=== PATIENT | male | born 1965 | race Caucasian/White ===

== ENCOUNTER 2020-12-06 00:29 | Inpatient (IN) | payer MEDICARE, MEDICAID, SELFPAY ==
[2020-12-06 00:30] VITALS: BP 166/94; PULSE 96; RESP 20; TEMP 36.8; O2SAT 95; BMI 38.9
[2020-12-06 00:45] LABS: Basophils % 0.5 %; Eosinophils # 0.4 10^3/uL (0.0-0.8); Eosinophils % 4.9 %; Hematocrit 40.3 % (42.0-52.0); Hemoglobin 12.3 g/dL (11.7-16.6); Lymphocytes # 2.5 10^3/uL (0.8-4.8); Lymphocytes % 31.5 %; Mean Corpuscular HGB Conc 30.5 g/dL (30.0-36.0); Mean Corpuscular Hemoglobin 26.4 pg (28.0-34.0); Mean Corpuscular Volume 86.5 fL (80-94); Mean Platelet Volume 10.6 fL (7.4-10.4); Monocytes # 0.8 10^3/uL (0.2-0.9); Monocytes % 9.6 %; Neutrophils # 4.25 10^3/uL (1.8-7.7); Neutrophils % 53.2 %; Nucleated Red Blood Cells % 0 %; Platelet Count 304 10^3/cmm (130-400); Red Blood Count 4.66 10^6/uL (4.1-5.3); Red Cell Distribution Width 14.4 % (12.1-15.1)
--- NOTE | 2020-12-06 00:53 | ED_ITS ---
HPI - Psych General: Chief Complaint: Psychiatric Symptoms Stated Complaint: MHE Time Seen by Provider: 12/06/20 00:34 Source: patient and EMS Mode of arrival: EMS Limitations: no limitations History of Present Illness: HPI Narrative: Jasvir is a 55-year-old male who is here from [facility] with paranoia and agitation. He is a paranoid schizophrenic and was refusing to take his medicine tonight was quite agitated at the jail. Patient's had no homicidal suicidal ideations. Here he has been calm and cooperative. He denies any worsening improving factors. Review of Systems Const: Denies: fever(s), chills, body aches or change in appetite Eyes: Denies: blurry vision or eye discomfort ENMT: Denies: throat pain or dental pain Card: Denies: chest pain Resp: Denies: dyspnea GI: Denies: abdominal pain, nausea, vomiting or diarrhea : Denies: dysuria Musc: Denies: neck pain or back pain Skin/Breast: Denies: rash Neuro: Denies: headache(s) Psych: Reports: paranoia Terell/Lymph: Denies: easy bruising All/Imm: Denies: urticaria Physical Exam Const: COMMON NORMALS: no acute distress, patient oriented x3 and healthy appearing HENMT: COMMON NORMALS: normocephalic and atraumatic HEAD & SCALP: normocephalic and atraumatic Eye: COMMON NORMALS: Equal, round and reactive pupils present and EOMs intact bilaterally PUPIL: Yes Equal, round and reactive pupils present Neck/C-Spine: COMMON NORMALS: full ROM and supple Chest: COMMONS NORMALS: normal inspection of the chest and normal palpation of entire chest wall Resp: COMMON NORMALS: normal respiratory effort, No retractions, No use of accessory muscles and clear to auscultation bilaterally AUSCULTATION: clear to auscultation bilaterally Cardio: COMMON NORMALS: regular rate, regular rhythm and No murmurs present (Cardio) RATE: regular rate RHYTHM: regular rhythm GI: COMMON NORMALS: Normal to inspection, nondistended, normoactive bowel sounds present, Soft to palpation, non-tender and no masses PALPATION: Yes Soft to palpation Extremity: COMMON NORMALS: normal to inspection and full ROM Neuro: COMMON NORMALS: patient oriented x3, moves all extremities and no focal motor deficits Psych: COMMON NORMALS: mental status grossly normal, Normal thought process present and cooperative THOUGHT PROCESS: Normal thought process present Skin: COMMON NORMALS: no rashes or lesions noted and no wounds GENERAL SKIN EXAM: no rashes or lesions noted Course Vital Signs: Vital signs: Vital Signs Temperature 98.2 F 12/06/20 00:30 Pulse Rate 96 12/06/20 00:30 Respiratory Rate 20 H 12/06/20 00:30 Blood Pressure 166/94 12/06/20 00:30 Pulse Oximetry 95 12/06/20 00:30 MDM - Psych MDM Narrative: Medical decision making narrative: Patient presents here with extreme paranoia and was agitated jail night. Patient here has been cooperative. He does seem quite paranoid and states that the jail has been trying to harm him by giving him the wrong medicines. I spoke to Dr. Wallace and will admit him for observation for this paranoia. He is not suicidal or homicidal. Lab Data: Labs: Lab Results 12/06/20 12/06/20 Range/Units 00:38 00:38 WBC 8.0 (4.0-10.0) 10^3/ uL RBC 4.66 (4.1-5.3) 10^6/u L Hgb 12.3 (11.7-16.6) g/dL Hct 40.3 L (42.0-52.0) % MCV 86.5 (80-94) fL MCH 26.4 L (28.0-34.0) pg MCHC 30.5 (30.0-36.0) g/dL RDW 14.4 (12.1-15.1) % Plt Count 304 (130-400) 10^3/c mm MPV 10.6 H (7.4-10.4) fL Neut % (Auto) 53.2 % Lymph % (Auto) 31.5 % [place] % (Auto) 9.6 % Eos % (Auto) 4.9 % Baso % (Auto) 0.5 % Neut # (Auto) 4.25 (1.8-7.7) 10^3/u L Lymph # (Auto) 2.5 (0.8-4.8) 10^3/u L [place] # (Auto) 0.8 (0.2-0.9) 10^3/u L Eos # (Auto) 0.4 (0.0-0.8) 10^3/u L Baso # (Auto) 0.0 (0.0-0.1) 10^3/u L Nucleated RBC % (a uto) 0 % Nucleated RBCs # 0.0 /100WBC Sodium 135 L (136-145) mmol/L Potassium 3.9 (3.5-5.1) mmol/L Chloride 103 (98-107) mmol/L Carbon Dioxide 24 (22-29) mmol/L Anion Gap 11.9 (5-19) BUN 14 (6-20) mg/dL Creatinine 0.6 L (0.7-1.2) mg/dL GFR Calculation 140.9 H (90-130) mL/min Glucose 90 (65-115) mg/dL Calculated Osmolal ity 280 L (285-295) mOsm/k g Calcium 8.7 (8.5-10.5) mg/dL Total Bilirubin 0.3 (0.15-1.2) mg/dL AST 11 (0-40) U/L ALT 13 (0-41) U/L Alkaline Phosphata se 101 (40-130) IU/L Total Protein 7.9 (6.6-8.7) g/dL Albumin 4.2 (3.5-5.2) g/dL Globulin 3.7 (1.3-4.6) g/dL Salicylates < 0.3 L (3-10) mg/dL Acetaminophen < 5.0 L (10-30) ug/mL Ethyl Alcohol < 10 (0-10) mg/dL Discharge Plan Discharge Patient Disposition: Admitted As Inpatient Clinical Impression: Bipolar disorder, Paranoia Condition: Stable Coding Level of Care Code ED Hospital Receptionist for [facility] Fwd Exam Comprehensive
[2020-12-06 01:01] LABS: Alanine Aminotransferase 13 U/L (0-41); Albumin Level 4.2 g/dL (3.5-5.2); Alkaline Phosphatase 101 IU/L (40-130); Anion Gap 11.9 (5-19); Aspartate Amino Transferase 11 U/L (0-40); Blood Urea Nitrogen 14 mg/dL (6-20); Calcium 8.7 mg/dL (8.5-10.5); Carbon Dioxide 24 mmol/L (22-29); Chloride 103 mmol/L (98-107); Globulin 3.7 g/dL (1.3-4.6); Glomerular Filtration Rate 140.9 mL/min (90-130); Glucose 90 mg/dL (65-115); Osmolality Calculated 280 mOsm/kg (285-295); Potassium 3.9 mmol/L (3.5-5.1); Sodium 135 mmol/L (136-145); Total Bilirubin 0.3 mg/dL (0.15-1.2); Total Protein 7.9 g/dL (6.6-8.7)
[2020-12-06 01:02] LABS: Acetaminophen < 5.0 ug/mL (10-30); Alcohol Level < 10 mg/dL (0-10); Salicylate < 0.3 mg/dL (3-10)
[2020-12-06 02:14] VITALS: BP 128/88; PULSE 88; RESP 18; TEMP 36.6; O2SAT 97
[2020-12-06 02:35] LABS: Amphetamines Screen Urine Negative (Negative); Barbiturates Screen Urine Negative (Negative); Benzodiazepines Screen Urine Positive (Negative); Cocaine Screen Urine Negative (Negative); Opiate Screen Urine Negative (Negative); PCP Screen Urine Negative (Negative); THC Screen Urine Negative (Negative)
[2020-12-06 03:00] VITALS: BP 159/94; PULSE 84; RESP 20; TEMP 36.7; O2SAT 95
--- NOTE | 2020-12-06 04:34 | PC.NURSE ---
55/M who is here from [facility] with paranoia and agitation. He is a paranoid schizophrenic and was refusing to take his medicine tonight was quite agitated at the skilled nursing. Patient's had no homicidal suicidal ideations. Here he has been calm and cooperative. PT BELIEVES HE IS RECEIVING THE WRONG AMOUNTS AND TYPES OF MEDICATIONS IN ADDITION TO BEING NEW TO THIS FACILITY. MEDICATION WILL NEED TO BE EVALUATED AGAIN. THERE ARE SEVERAL MEDICATIONS HE TAKES THAT ARE FOR PSYCH REASONS, LABS MAY NEED TO BE ORDERED, PT IS DIABETIC, HAD THYROID ISSUES, HYPERTENSION, AND SCHIZOPHRENIA.
[2020-12-06 06:00] VITALS: BP 120/73; PULSE 80; RESP 14; TEMP 36.9; O2SAT 96
[2020-12-06 14:00] VITALS: BP 148/86; PULSE 97; RESP 20; TEMP 36.4; O2SAT 94
--- NOTE | 2020-12-06 14:39 | P.HP_ITS ---
Providers/Chief Complaint Admitting Physician: Familia Wallace MD Chief Complaint: MHE HPI NPU History of Present Illness Jasvir Reynolds is a 55 year old male who presented to the emergency department with the following report: Chief Complaint: Psychiatric Symptoms Stated Complaint: MHE Time Seen by Provider: 12/06/20 00:34 Source: patient and EMS Mode of arrival: EMS Limitations: no limitations History of Present Illness: HPI Narrative: Jasvir is a 55-year-old male who is here from [facility] with paranoia and agitation. He is a paranoid schizophrenic and was refusing to take his medicine tonight was quite agitated at the snf. Patient's had no homicidal suicidal ideations. Here he has been calm and cooperative. He denies any worsening improving factors. Bilaterally the He was mated to the neuropsychiatric unit for definitive treatment of those issues. He presents today as a fairly poor historian and the specifics of his situation in part due to his mumbling delivery when speaking. He reports he has had many inpatient psychiatric hospitalizations probably least 20. He reports that he does generally have outpatient services and has been on many different medications. Reports he had a diagnosis of schizophrenia or bipolar disorder. He does report a history of suicide attempt in the past. He denies reports drinking alcohol rarely, reports he last smoked marijuana when he was about 23 he denies any other illicit drug use. Is never been to rehab except when he was a kid and he never had a DUI. He tells a very convoluted story which is hard to follow that unified multiple different places that he is ultimately saying and what sounds like residential treatment facilities. He talked about some residential treatment places that preceded his current situation at [facility]. It does not sound like he had a [facility] for very long and he reports that it is not going well because they are giving him different medications but then he was unable to really clarify what medication they were given him that he should get and which ones he should. He was trying to explain what he was taking at a facility possibly inpatient facility prior to [facility] but it was unclear the name and he could really articulate what changes were made. We agreed that we would attempt to get some information from [facility] about what they got information was prior to prescribing to him. Attempt to gather past psychosocial history was very difficult because of his speaking style and mumbling he was getting frustrated at the repeat question request. He reports he would be willing to take the medications that he believes he should be taking but that is hard to tease out. Meds NPU Home Medications Medication Instructions Recorded Confirmed Last Taken Type Ativan 2 tab PO BID 12/06/20 12/06/20 Unknown History Benadryl 50 mg PO BID 12/06/20 12/06/20 Unknown History Detrol 1 tab PO BID 12/06/20 12/06/20 Unknown History Janumet 50 - 500 mg PO BID 12/06/20 12/06/20 Unknown History Restasis 0.005 % EYE-BOTH BID 12/06/20 12/06/20 Unknown History Vitamin D3 Complete 1,000 units PO DAILY 12/06/20 12/06/20 Unknown History Zyprexa 10 mg IM DAILY PRN 12/06/20 12/06/20 Unknown History Zyprexa 20 mg IM Q4H PRN 12/06/20 12/06/20 Unknown History Zyprexa Zydis 20 mg PO Q4H PRN 12/06/20 12/06/20 Unknown History divalproex 1,000 mg PO BEDTIME 12/06/20 12/06/20 Unknown History divalproex 500 mg PO DAILY 12/06/20 12/06/20 Unknown History divalproex 500 mg PO DAILY 12/06/20 12/06/20 Unknown History divalproex [Depakote] 1,000 mg PO BEDTIME 12/06/20 12/06/20 Unknown History docusate sodium [Colace] 100 mg PO DAILY PRN 12/06/20 12/06/20 Unknown History docusate sodium [Colace] 200 mg PO DAILY 12/06/20 12/06/20 Unknown History doxepin 50 mg PO BEDTIME 12/06/20 12/06/20 Unknown History famotidine [Pepcid] 20 mg PO BID 12/06/20 12/06/20 Unknown History fluticasone propionate 2 spray INTRANASAL DAILY 12/06/20 12/06/20 Unknown History gabapentin 600 mg PO TID 12/06/20 12/06/20 Unknown History haloperidol [Haldol] 10 mg PO BID 12/06/20 12/06/20 Unknown History latanoprost 1 drp OPHTHALMIC (EYE) DAILY 12/06/20 12/06/20 Unknown History levothyroxine 25 mcg PO DAILY 12/06/20 12/06/20 Unknown History lisinopril 10 mg PO DAILY 12/06/20 12/06/20 Unknown History lithium carbonate 450 mg PO BID 12/06/20 12/06/20 Unknown History meloxicam 7.5 mg PO DAILY 12/06/20 12/06/20 Unknown History nitroglycerin 0.4 mg PO DIRECTED PRN 12/06/20 12/06/20 Unknown History olanzapine [Zyprexa] 10 mg PO BEDTIME 12/06/20 12/06/20 Unknown History pantoprazole [Protonix] 40 mg PO DAILY 12/06/20 12/06/20 Unknown History tamsulosin [Flomax] 0.4 mg PO DAILY 12/06/20 12/06/20 Unknown History Allergies Allergy/AdvReac Type Severity Reaction Status Date / Time bee venom protein (honey bee) Allergy Unknown Verified 12/06/20 03:26 Penicillins Allergy Unknown Verified 12/06/20 03:26 Glucophage Allergy Unknown Uncoded 12/06/20 05:24 Mental Status Exam MSE Comments: This is an obese versus morbidly obese white male with hospital scrubs on with limited grooming and eye contact. No abnormal movements except for psychomotor retardation. Cooperative with exam in mild distress. Speech was increased rate, decreased volume without clear enunciation in his words so it was mumbling without enunciation. Mood described as okay affect anxious. Thought process mostly organized. Thought content: Patient denied suicidal or homicidal ideations, there were no delusions reported but paranoid and persecutory thinking appeared present, he did not report any auditory visual hallucination. Concentration were mostly intact and memory appeared unreliable but none were formally tested. He is alert and oriented times person and place. Insight and judgment are limited and impulse control is limited. Vitals/I&O/Wt Last Vital Signs Temp 97.5 F L 12/06/20 14:00 Pulse 97 12/06/20 14:00 Resp 20 H 12/06/20 14:00 BP 148/86 12/06/20 14:00 Pulse Ox 94 12/06/20 14:00 Weight last 48 hrs Weight 116.12 kg Data NPU : 12/06/20 00:38 12/06/20 00:38 A&P Assessment and plan (1) Schizophrenia: Status: Acute (2) Bipolar disorder: Status: Acute (3) Paranoia: Status: Acute (4) Adjustment disorder with mixed disturbance of emotions and conduct: Status: Acute Additional A&P Information This is a 55-year-old white male with a long history of psychotic disorder and likely different placements who presents adjusting to a new facility with some paranoia and lack of clarity about appropriate medication with significant polypharmacy. 1. Continue current medication. We will need to verify medication before we reinstate some of his medication. We will start the medication that he is agr eeable to. 2. Continue every 15 minute checks for safety. 3. Encourage individual, group and milieu therapies. 4. We will need collateral information and possible snorkel information on his past medications prescribed. Involuntary Hold Information 96 Hour Hold: 96 Hour Involuntary Admission: No Attestations NPU Medical Necessity Statement*: Inpatient hospitalization is medically necessary and the clinically appropriate intervention at this time. We will monitor medications and make changes as indicated. Patient will be in the hospital for over two midnights. Likely length of stay 3 to 5 days. Coding Level of Care Code Acute Nursery Rn for [facility] Diagnoses Schizophrenia F20.9 Bipolar disorder F31.9 Paranoia F22 Adjustment disorder with mixed disturbance of emotions and conduct F43.25
[2020-12-06 20:23] VITALS: RESP 18
--- NOTE | 2020-12-06 20:24 | PC.NURSE ---
pt refused vitals/stiven/12-06-2020
--- NOTE | 2020-12-06 21:21 | PC.NURSE ---
PM Assessment Pt is sitting on the bench by nurses station, eyes wide, he seems lost. Pt says You lied to me, refuses to interact with nurse, Crisis Counselor was present, she attempted to interact with pt. Pt believes he is at the hospital to see his 53 yr old son, (He is 53) and states he is 71 years old, Im the father. You have me here by mistake, giving me medications I do not take, Pt comes to unit from [facility] in [place], [place]. He is very agitated, refuses medication, refuses redirection regarding unit rules of open door and 15 min observation, jumped out of bed at nurse, who was able to verbally de-escalate patient, education provided on expected behavior/rules of unit, pt reoriented with staff. Pt refused to believe nurse is a RN. Very paranoid this evening. This is a change from time of admission. Pt was clear at that time, able to provide accurate details of medication, names of people, time and place. Tonight he is not able to do this, he believes nurse nurse shut off the sun, and tricked him, it is near [place], and the leaves fell Pt refuses to believe he is 55 and needs to be here, adamantly declares his age of 73, refused to provide birthday. Pt gets agitated easily, seems lost, overwhelmed, and yells when approached. He said that he is a former member, his hands are registered as weapons, he has 5 children, plays guitar, loves music, and he provided phone number for nurse to call to verify who he is, to prove that he has been admitted wrongfully. Pt never asked to go home. He is voluntary. When asked where he lives, pt responded, Here, here, here. Nurse attempted to administered night medications, he refused all this evening. He wants to rest, wedge placed to ease his breathing at night, pt snores loudly may need eval for apnea. Nurse spent over 45 min in room to calm patient effectively. Pt room is closed due to his psychosis, pt believes he is [place] , he is Michel and the president covered it up, and that he is not who we as a facility say we are, the staff is not who they say. We are out to kill him. He is resting and said Call the people I told you to. Pt provided names and numbers from memory. Very convincing as he told nurse who they were. Nurse called [place], he said was his daughter, this was a caregivers home number who was startled he had her home information. Nurse addressed pt concern of medications, he refused to take them. Med rec completed on admission mentioned to Physician as suspect at that time, and nurse asked physician to look over them with her tonight and suggested they may need to be adjusted, and new labs establishing a baseline for them. Physician ordered Valproic Acid, BMP, CBC, A1C, [place] level, and Thyroid panel. Contacted facility at [facility] for a current med list, received it, placed in chart, physician notified, response was please inform next physician as he will be taking over care the next several days.
[2020-12-07 06:00] VITALS: BP 141/88; PULSE 92; RESP 17; TEMP 36.8; O2SAT 93
[2020-12-07 06:18] LABS: Glucose Point of Care 115 mg/dL (70-110)
[2020-12-07 07:13] LABS: Basophils % 0.3 %; Eosinophils # 0.2 10^3/uL (0.0-0.8); Eosinophils % 2.3 %; Hematocrit 42.6 % (42.0-52.0); Lymphocytes # 2.4 10^3/uL (0.8-4.8); Lymphocytes % 24.4 %; Mean Corpuscular HGB Conc 30.5 g/dL (30.0-36.0); Mean Corpuscular Hemoglobin 26.1 pg (28.0-34.0); Mean Corpuscular Volume 85.4 fL (80-94); Mean Platelet Volume 10.5 fL (7.4-10.4); Monocytes # 0.7 10^3/uL (0.2-0.9); Monocytes % 6.7 %; Nucleated Red Blood Cells % 0 %; Platelet Count 316 10^3/cmm (130-400); Red Blood Count 4.99 10^6/uL (4.1-5.3); Red Cell Distribution Width 14.6 % (12.1-15.1); White Blood Count 9.7 10^3/uL (4.0-10.0)
[2020-12-07 07:38] LABS: Anion Gap 12.7 (5-19); Blood Urea Nitrogen 16 mg/dL (6-20); Calcium 9.1 mg/dL (8.5-10.5); Carbon Dioxide 25 mmol/L (22-29); Chloride 102 mmol/L (98-107); Glomerular Filtration Rate 140.9 mL/min (90-130); Glucose 156 mg/dL (65-115); Osmolality Calculated 286 mOsm/kg (285-295); Potassium 3.7 mmol/L (3.5-5.1); Sodium 136 mmol/L (136-145); Thyroid Stimulating Hormone 2.57 uIU/mL (0.27-4.20)
[2020-12-07 07:39] LABS: Valproic Acid Level 6.7 ug/mL (50-100)
[2020-12-07 07:41] LABS: Lithium < 0.1 mmol/L (0.6-1.2)
[2020-12-07] MEDS: fluticasone nasal spray 16gm Btl 2 SPRAY INTRANASAL (08:35)
[2020-12-07] MEDS: cholecalciferol (vitamin D3) 1,000 unit Tablet 1000 UNIT PO (08:35)
[2020-12-07] MEDS: meloxicam 7.5 mg tablet PO (08:36)
[2020-12-07] MEDS: lisinopril 10 mg Tablet PO (08:36)
[2020-12-07] MEDS: divalproex DR 500 mg Tablet PO (08:36)
[2020-12-07] MEDS: levothyroxine 25 mcg Tablet PO (08:36)
[2020-12-07] MEDS: tolterodine 2 mg Tablet 1 MG PO ×2 (08:36→21:01)
[2020-12-07] MEDS: pantoprazole DR 40 mg Tablet PO (08:36)
[2020-12-07] MEDS: gabapentin 300 mg Capsule 600 MG PO ×3 (08:37→20:37)
[2020-12-07] MEDS: famotidine 20 mg Tablet PO ×2 (08:37→21:01)
[2020-12-07] MEDS: lithium carbonate ER 450 mg Tablet PO (08:37)
[2020-12-07] MEDS: tamsulosin 0.4 mg Capsule PO (08:37)
--- NOTE | 2020-12-07 08:38 | PC.NURSE ---
refused scheduled Ativan, pt stated I only take it as needed
--- NOTE | 2020-12-07 11:43 | P.PN_ITS ---
Subjective NPU Subjective: Interval history: Per staff report, patient is much more alert today with no cognitive complaints Patient denying any current mood symptoms, denies any depressed symptoms, denies anxiety symptoms Denies any suicidal ideation or thoughts about self-harm No interval behavioral disturbances Patient states that he felt like he was overmedicated while using the [facility] and states he does not recall any behavioral disturbances while he was there but does understand that that is why he is in the hospital Reports that he is tolerating medication changes well and has been compliant with this medication with no reports of any medication side effects Mental Status Exam MSE Comments: Patient appears older than stated age, obese, wearing hospital scrubs, slightly disheveled but polite, calm, cooperative, good eye contact Psychomotor activity is neither increased or decreased, no agitation Speech is somewhat slow, normal volume, fair articulation, spontaneous, not pressured I feel much better, full range of affect, not labile Alert, oriented to person, place, time, situation Memory and concentration appear to be fair to intact per interview Intellectual functioning appears to be average at best based on vocabulary, interview Thought process, occasional delays, linear, no flight of ideas, no looseness of associations Thought content, no stated delusions, does not appear to be attending to any internal stimuli, no suicidal or homicidal ideation Insight and judgment appear to be intact Vitals/I&O/Wt Last Vital Signs Temp 98.3 F 12/07/20 06:00 Pulse 92 12/07/20 06:00 Resp 17 12/07/20 06:00 BP 141/88 12/07/20 06:00 Pulse Ox 93 12/07/20 06:00 Weight last 48 hrs Weight 116.12 kg Data NPU : 12/07/20 07:01 12/07/20 07:01 A&P Assessment and plan (1) Adjustment disorder with mixed disturbance of emotions and conduct: Status: Acute (2) Bipolar disorder: Status: Acute Qualifiers: Current episode severity: unspecified Active/Remission status: currently active Current bipolar episode type: depressed Qualified Code(s): F31.30 - Bipolar disorder, current episode depressed, mild or moderate severity, unspecified Additional A&P Information Patient appears to be back at baseline with regards to cognition, unclear if patient had been medicated in conjunction with behavioral disturbances causing a medication induced confused state. Currently denying any mood symptoms, denies any psychotic symptoms and appears to be organized in his speech and behavior. Would likely benefit from discontinuing Ativan given its likely contribution to sedation and confusion. DECREASE to lithium 450 mg daily CONTINUE other medication Anticipate discharge tomorrow Involuntary Hold Information 96 Hour Hold: 96 Hour Involuntary Admission: No Attestations NPU Medical Necessity Statement*: Continues require psychiatric hospitalization for medication stabilization, coordination for safe discharge Coding Level of Care Code Acute Last Cleaner for [facility] Diagnoses Adjustment disorder with mixed disturbance of emotions and conduct F43.25 Bipolar disorder F31.30 Current episode severity: unspecified Active/Remission status: currently active Current bipolar episode type: depressed
[2020-12-07 14:00] VITALS: BP 120/75; PULSE 100; RESP 20; TEMP 36.8; O2SAT 95
[2020-12-07 20:36] VITALS: BP 127/68; PULSE 89; RESP 18; TEMP 37.1; O2SAT 95
[2020-12-07] MEDS: OLANZapine 10 mg TABLET PO (20:36)
[2020-12-07] MEDS: divalproex DR 500 mg Tablet 1000 MG PO (20:36)
[2020-12-07] MEDS: doxepin 50 mg Capsule PO (20:37)
[2020-12-07] MEDS: latanoprost 0.005% Op Soln 2.5 mL Btl 1 DROP EYE-BOTH ×2 (21:15→21:17)
--- NOTE | 2020-12-07 23:16 | PC.NURSE ---
PM Assessment Pt is sitting in the dayroom, heart/lungs wnl, smiling, interacting with staff appropriately, he is able to give name, birthday, time of day, and season. Remembered nurse from last shift, pt is calm and cooperative at this time, he does require re-education regarding keeping door open. Pt put in his own eye drops for nurse, and took scheduled medication without incident, pt told hand sign writer, I had blood drawn this morning, and said I am feeling pretty good today. 0701 on 12/07/20 Labs: Glucose is 156(elevated), GFR 140.9 (elevated), TSH 2.57 (normal), and Valproic Acid 6.7 (Low), and [place] is below 0.1 (LOW). Medication list from facility lists 450mg PO [place] BID, Valproic Acid 600mg PO TID, and many other medications of concern. [facility] staff indicated this patient has a history of violent outbursts, new onset Sundowning type behaviors, and he often refuses medications. Staff said this patient has only been with facility about 10-1.5 months. health information manager, Carolann, made aware of nursing concerns, stated she would look into his meds and history.
[2020-12-08] MEDS: nicotine 2 mg Gum BUCCAL (03:52)
--- NOTE | 2020-12-08 03:52 | NUR.SHIFT ---
nocturnal incontinence pt urinated two time in his bed, showered, and refused brief. Pt is cooperative with staff this evening, mood is more even, and speech is less pressured
[2020-12-08 05:42] VITALS: BP 115/67; PULSE 82; RESP 17; TEMP 36.7; O2SAT 97
[2020-12-08] MEDS: fluticasone nasal spray 16gm Btl 2 SPRAY INTRANASAL (07:55)
[2020-12-08] MEDS: tolterodine 2 mg Tablet 1 MG PO (07:55)
[2020-12-08] MEDS: lisinopril 10 mg Tablet PO (07:56)
[2020-12-08] MEDS: divalproex DR 500 mg Tablet PO (07:56)
[2020-12-08] MEDS: gabapentin 300 mg Capsule 600 MG PO (07:56)
[2020-12-08] MEDS: levothyroxine 25 mcg Tablet PO (07:56)
[2020-12-08] MEDS: cholecalciferol (vitamin D3) 1,000 unit Tablet 1000 UNIT PO (07:56)
[2020-12-08] MEDS: tamsulosin 0.4 mg Capsule PO (07:57)
[2020-12-08] MEDS: lithium carbonate ER 450 mg Tablet PO (07:57)
[2020-12-08] MEDS: pantoprazole DR 40 mg Tablet PO (07:57)
[2020-12-08] MEDS: famotidine 20 mg Tablet PO (07:57)
[2020-12-08] MEDS: meloxicam 7.5 mg tablet PO (07:57)
[2020-12-08 09:21] VITALS: BP 115/67; PULSE 82; RESP 17; TEMP 36.7; O2SAT 97
--- NOTE | 2020-12-08 09:39 | P.DS_ITS ---
Diagnoses at Discharge Discharge Diagnosis (1) Adjustment disorder with mixed disturbance of emotions and conduct: Status: Acute (2) Bipolar disorder: Status: Acute Qualifiers: Active/Remission status: currently active Current bipolar episode type: depressed Current episode severity: unspecified Qualified Code(s): F31.30 - Bipolar disorder, current episode depressed, mild or moderate severity, unspecified Reason for Visit Reason for Visit: [facility] Hospital Course Hospital Course 55-year-old male with history of paranoid schizophrenia admitted from fdc secondary to worsening agitation and confusion although patient was initially calm and cooperative at the time of his admission. Patient also appeared to possibly be confused secondary to increasing amount of as needed medication. Patient's Ativan order was discontinued during this hospital stay as well as decreasing lithium to lithium 450 mg daily secondary to concerns about cognitive clouding and since patient was on multiple mood stabilizing medications. Patient rapidly reconstituted and reported thinking more clearly and denied any mood symptoms, denied any depressed symptoms, denied any suicidal ideation and denied any thoughts about harming anyone else. Patient participated in unit milieu to include group sessions with no reports of any behavioral disturbances. Patient was not suicidal and did not endorse any psychotic symptoms at the time of discharge and did not appear to pose an imminent threat of harm to self or others. Low to moderate risk of harm to self or others given no current suicidal ideation or thoughts about harming others and no current endorsement of psychiatric symptoms although patient's risk may be elevated if he is noncompliant with this medication or medication management follow-up or possibly experiences some agitation or confusion in the context of polypharmacy leading to unexpected, impulsive behavior. Risk mitigation included psychiatric hospitalization for observation for any suicidal or homicidal ideation or behaviors, medication stabilization, recommendation to continue compliance with outpatient medication management follow-up. Patient communicated his understanding of the need to continue compliance with his medication and medication management follow-up as well as exercising more adaptive coping strategies in the context of frustrating situations in a fdc environment in order to further mitigate his risk of harm to self and others. Involuntary Hold Information 96 Hour Hold: 96 Hour Involuntary Admission: No Mental Status Exam MSE Comments: Obese male, appears older than stated age, appropriately groomed and dressed, wearing hospital scrubs, calm, cooperative, quiet, good eye contact, sitting on his bed Psychomotor activity is neither increased or decreased, no agitation Speaks softly in a somewhat mumbling manner, fair articulation, spontaneous, not pressured I feel good, somewhat constricted affect, not labile Alert and oriented to person, place, time, situation Memory and concentration appear to be intact per interview Thought process, linear, occasional circumstantial speech requiring redirection for clarification to responses but no flight of ideas, no looseness of associations Thought content, patient with some perseveration about an event that happened with regards to changes in TV channels in the day room but otherwise no stated delusions, no hallucinations, no suicidal homicidal ideation Insight and judgment appear to be fair to intact Discharge Data Vitals: Last Vital Signs Temp 98.0 F 12/08/20 09:21 Pulse 82 12/08/20 09:21 Resp 17 12/08/20 09:21 BP 115/67 12/08/20 09:21 Pulse Ox 97 12/08/20 09:21 Discharge Plan Discharge Patient Disposition: Home Condition: Stable Prescriptions: New lithium carbonate 450 mg Tablet Extended Release 450 mg PO DAILY Qty: 30 RF: 0 Continued doxepin 50 mg Capsule 50 mg PO BEDTIME RF: 0 divalproex 500 mg Tablet,Delayed Release (Dr/Ec) 500 mg PO DAILY RF: 0 divalproex 500 mg Tablet,Delayed Release (Dr/Ec) 1,000 mg PO BEDTIME RF: 0 tamsulosin [Flomax] 0.4 mg Capsule 0.4 mg PO DAILY RF: 0 latanoprost 0.005 % Drops 1 drp OPHTHALMIC (EYE) DAILY RF: 0 olanzapine [Zyprexa] 10 mg Tablet 10 mg PO BEDTIME RF: 0 meloxicam 7.5 mg Tablet 7.5 mg PO DAILY RF: 0 pantoprazole [Protonix] 40 mg Tablet,Delayed Release (Dr/Ec) 40 mg PO DAILY RF: 0 lisinopril 10 mg Tablet 10 mg PO DAILY RF: 0 fluticasone propionate 50 mcg/actuation [place],Suspension 2 spray INTRANASAL DAILY RF: 0 Benadryl 25 mg capsule 50 mg PO BID RF: 0 Detrol 1 mg tablet 1 tab PO BID RF: 0 Janumet tablet 50 - 500 mg PO BID RF: 0 Vitamin D3 Complete capsule 1,000 units PO DAILY RF: 0 levothyroxine tablet 25 mcg PO DAILY RF: 0 famotidine [Pepcid] 20 mg Tablet 20 mg PO BID RF: 0 Restasis emulsion 0.005 % eye-both BID RF: 0 gabapentin tablet 600 mg PO TID RF: 0 Zyprexa 10 mg IM DAILY PRN (Reason: Agitation) RF: 0 nitroglycerin tablet 0.4 mg PO DIRECTED PRN (Reason: Agitation) RF: 0 Zyprexa 20 mg IM Q4H PRN (Reason: Agitation) RF: 0 Zyprexa Zydis 20 mg PO Q4H PRN (Reason: behavior r/t schizophrenia) RF: 0 docusate sodium 50 mg Capsule 100 mg PO DAILY PRN (Reason: Constipation) RF: 0 Discontinued Ativan 1 mg tablet 2 tab PO BID RF: 0 lithium carbonate 450 mg Tablet Extended Release 450 mg PO BID RF: 0 Discharge Orders: Discharge Order (Routine); Ordered 12/08/20 Ordered By: Michaela Allan Discharge Diet: Usual diet Discharge Activity: Resume usual activity Patient Instructions: [place] (By mouth), Opioid Safety Discharge Attestations NPU Time Spent in Discharge Care*: greater than 30 min Status at Discharge: Cognitive status at discharge: cognitively intact , Behavioral status at discharge: cooperative , Functional status at discharge: independent ambulation Overall status at discharge: patient is back to baseline Coding Level of Care Code Acute g FW DC note Diagnoses Adjustment disorder with mixed disturbance of emotions and conduct F43.25 Bipolar disorder F31.30 Active/Remission status: currently active Current bipolar episode type: depressed Current episode severity: unspecified
--- NOTE | 2020-12-08 12:48 | PC.NURSE ---
TOM FROM [facility] IN [place] CALLED WITH REQUEST FOR ORDER CLARIFICATION ON PT FOR HALDOL MONTHLY INJECTION AND HALDOL 10 MG PO BID. MAINTENANCE FITTER NOTIFIED DR. LUNA AND RESPONSE WAS FOR PT TO CONTINUE WITH MONTHLY HALDOL INJECTION AND TO DISCONTINUE HALDOL 10 MG PO BID. THIS INFORMATION WAS COMMUNICATED TO TOM AT [place] AND SHE VERBALIZED UNDERSTANDING.
== END 2020-12-08 12:20 | disposition skilled nursing facility (03) | DRG 885 ==
LOC: ER 01:16 → NP 17:20
PROVIDERS: Admitting Provider Psychiatry & Neurology Psychiatry; Emergency Provider Emergency Medicine; Visit Provider Psychiatry & Neurology Psychiatry
DX: F31.30 Bipolar disorder, current episode depressed, mild or moderate severity, unspecified (principal); Z91.5 Personal history of self-harm; F43.25 Adjustment disorder with mixed disturbance of emotions and conduct
CPT/HCPCS: 36415; 36416; 80048; 80053; 80164; 80178; 80306; 80307; 81003; 82550; 82962; 83735; 84439; 84443; 85025; 93005; 96372; 99285; J1631

== ENCOUNTER 2020-12-09 07:26 | Inpatient (IN) | payer MEDICARE, MEDICAID, SELFPAY ==
[2020-12-09 07:26] VITALS: BP 143/78; PULSE 121; RESP 18; TEMP 36.7; O2SAT 95; BMI 42.5
--- NOTE | 2020-12-09 07:33 | ECG_ITS ---
[facility] Test Date: 2020-12-09 Pat Name: Jasvir Reynolds Department: Room: Gender: Male Unit Director: : 1965 Requested By: Mely Mercado Order Number: [id number] Gomez MD: Gabby Lunsford M.D. Measurements Intervals [place] Rate: 89 P: 48 IL: 133 QRS: 32 QRSD: 89 T: 54 QT: 353 QTc: 429 Interpretive Statements SINUS RHYTHM NONSPECIFIC T-WAVE ABNORMALITY INTERPRETATION BASED ON A DEFAULT AGE OF 40 YEARS No previous ECG available for comparison Electronically Signed On 12-10-2020 12:08:50 CDT by Gabby Lunsford M.D. [id number] f
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
[2020-12-09 07:47] VITALS: O2SAT 94
[2020-12-09 07:48] LABS: Basophils % 0.4 %; Eosinophils # 0.2 10^3/uL (0.0-0.8); Hematocrit 40.3 % (42.0-52.0); Hemoglobin 12.4 g/dL (11.7-16.6); Lymphocytes # 1.6 10^3/uL (0.8-4.8); Lymphocytes % 14.3 %; Mean Corpuscular HGB Conc 30.8 g/dL (30.0-36.0); Mean Corpuscular Hemoglobin 26.2 pg (28.0-34.0); Mean Platelet Volume 10.4 fL (7.4-10.4); Monocytes # 0.8 10^3/uL (0.2-0.9); Monocytes % 7.6 %; Neutrophils % 75.2 %; Nucleated Red Blood Cells % 0 %; Platelet Count 286 10^3/cmm (130-400); Red Blood Count 4.74 10^6/uL (4.1-5.3); Red Cell Distribution Width 14.4 % (12.1-15.1)
--- NOTE | 2020-12-09 07:50 | PC.NURSE ---
Pt came in from EMS with soft restraints and had been given medication to help him relax. pt was able to be verbally redirected when he arrived to ER. Pt not restrained at this time. dog or animal sitter at bedside. pt is not homicidal or suicidal.
[2020-12-09 08:16] LABS: Alanine Aminotransferase 12 U/L (0-41); Albumin Level 4.4 g/dL (3.5-5.2); Alkaline Phosphatase 94 IU/L (40-130); Aspartate Amino Transferase 14 U/L (0-40); Blood Urea Nitrogen 17 mg/dL (6-20); Calcium 8.9 mg/dL (8.5-10.5); Carbon Dioxide 25 mmol/L (22-29); Chloride 101 mmol/L (98-107); Free T4 Free Thyroxine 1.35 ng/dL (0.82-1.77); Globulin 3.6 g/dL (1.3-4.6); Glomerular Filtration Rate 101.1 mL/min (90-130); Glucose 104 mg/dL (65-115); Magnesium 1.9 mg/dL (1.7-2.3); Osmolality Calculated 284 mOsm/kg (285-295); Sodium 136 mmol/L (136-145); Total Bilirubin 0.5 mg/dL (0.15-1.2)
[2020-12-09 08:20] LABS: Acetaminophen < 5.0 ug/mL (10-30); Alcohol Level < 10 mg/dL (0-10); Salicylate < 0.3 mg/dL (3-10)
[2020-12-09 08:21] LABS: Creatine Phosphokinase 486 U/L (39-308)
--- NOTE | 2020-12-09 08:47 | PC.NURSE ---
pt given breakfast tray. pt remains calm and cooperative with staff.
[2020-12-09 08:49] LABS: Add Urine Microscopic? NO; Charge for UA Resulting for Rev
[2020-12-09 08:58] LABS: Bilirubin Urine Neg (Negative); Blood Urine Neg (Negative); Glucose Urine UA Norm (Normal); Ketones Urine Negative (Negative); Leukocyte Esterase Urine Negative (Negative); Nitrate Urine Negative (Negative); Protein Urine Neg (Negative); Specific Gravity, Urine 1.015 (1.005-1.030); Urine Appearance Clear (CLEAR); Urine Color Straw (Yellow); Urobilinogen Urine Norm (Negative); pH Urine 6 (5-7)
[2020-12-09 09:33] LABS: Amphetamines Screen Urine Negative (Negative); Barbiturates Screen Urine Negative (Negative); Benzodiazepines Screen Urine Negative (Negative); Cocaine Screen Urine Negative (Negative); Opiate Screen Urine Negative (Negative); PCP Screen Urine Negative (Negative); THC Screen Urine Negative (Negative)
[2020-12-09 10:48] VITALS: O2SAT 94
--- NOTE | 2020-12-09 10:53 | PC.PHAR ---
medications entered are from the pts custodial mar-notes are made on rxs that were dced on 12/08/20 on pts nm mar
[2020-12-09 11:07] VITALS: BP 137/83; PULSE 90; RESP 20; TEMP 37.1; O2SAT 96
--- NOTE | 2020-12-09 12:35 | P.HP_ITS ---
Providers/Chief Complaint Admitting Physician: Michaela Allan DO Chief Complaint: COMBATIVE HPI NPU History of Present Illness Jasvir Reynolds is a 55 year old male with history of paranoid schizophrenia brought to the emergency department from care home secondary to report of agitation. Patient states that he felt like people were taking his clothing from him causing him to become verbally and physically agitated. Concerning at the time of discharge yesterday, was that the care home was already asking about giving additional medication before he even arrived back to the care home. Patient had concerns with regards to polypharmacy during last hospitalization and had experienced some confusion for a couple of days while certain medications were being held secondary to being on multiple antipsychotic medications as well as multiple sedating and anticholinergic medications which could have exacerbated patient's confusion and possibly worsened his agitation. Patient currently reporting that he continues to be upset about his circumstances and continues to have paranoid delusions, denies any auditory or visual destinations. Denies any depressed symptoms, denies any suicidal ideation, denies any homicidal ideation or thoughts about harming others but when asked about why he had someone else he stated because they took his things. Psychiatric review of systems is otherwise negative. Denies any changes to modifying factor since last admission. Review of Systems General: Reports: 10 or more systems reviewed and unremarkable except in HPI and below Meds NPU Home Medications Medication Instructions Recorded Confirmed Last Taken Type divalproex 1,000 mg PO DAILY@12/06/20 12/09/20 12/04/20 21:00 History divalproex 500 mg PO DAILY@12/06/20 12/09/20 12/04/20 09:00 History doxepin 50 mg PO BEDTIME@12/06/20 12/09/20 12/04/20 History famotidine [Pepcid] 20 mg PO BID@,12/06/20 12/09/20 12/08/20 History fluticasone propionate 2 spray INTRANASAL DAILY@12/06/20 12/09/20 12/04/20 09:00 History latanoprost 1 drp OPHTHALMIC (EYE) DAILY@12/06/20 12/09/20 12/04/20 History lisinopril 10 mg PO DAILY@12/06/20 12/09/20 12/04/20 07:00 History meloxicam 7.5 mg PO DAILY@12/06/20 12/09/20 12/04/20 09:00 History pantoprazole [Protonix] 40 mg PO DAILY@12/06/20 12/09/20 12/04/20 09:00 History tamsulosin [Flomax] 0.4 mg PO DAILY@18 12/06/20 12/09/20 12/04/20 09:00 History lithium carbonate 450 mg PO DAILY #30 tab 12/08/20 12/09/20 Unknown Rx cholecalciferol (vitamin D3) 25 mcg PO DAILY@12/09/20 12/09/20 Unknown History [Vitamin D3] cyclosporine [Restasis] 1 drp OPHTHALMIC (EYE) Q12H 12/09/20 12/09/20 12/08/20 History diphenhydramine HCl [Benadryl] 50 mg PO BID@,12/09/20 12/09/20 Unknown History docusate sodium 100 mg PO DAILY PRN 12/09/20 12/09/20 Unknown History gabapentin 600 mg PO TID@08,,12/09/20 12/09/20 12/08/20 History haloperidol 10 mg PO BID@08,12/09/20 12/09/20 12/08/20 08:00 History haloperidol decanoate 100 mg IM .ONCE EVERY 28 DAYS 12/09/20 12/09/20 Unknown History levothyroxine 25 mcg PO DAILY@12/09/20 12/09/20 Unknown History lorazepam [Ativan] 2 mg PO BID 12/09/20 12/09/20 12/08/20 08:00 History nitroglycerin [Nitrostat] 0.4 mg SUBLINGUAL Q5M PRN 12/09/20 12/09/20 Unknown History olanzapine [Zyprexa Zydis] 20 mg PO Q4H PRN 12/09/20 12/09/20 Unknown History olanzapine [Zyprexa] 10 mg IM Q24H PRN 12/09/20 12/09/20 Unknown History olanzapine [Zyprexa] 10 mg PO DAILY@12/09/20 12/09/20 Unknown History olanzapine [Zyprexa] 10 mg PO Q6H PRN 12/09/20 12/09/20 Unknown History sitagliptin-metformin [Janumet] 1 tab PO BID 12/09/20 12/09/20 Unknown History tolterodine [Detrol] 1 mg PO BID@08,20 12/09/20 12/09/20 12/08/20 20:00 History Allergies Allergy/AdvReac Type Severity Reaction Status Date / Time bee venom protein (honey bee) Allergy Unknown Verified 12/09/20 10:53 Penicillins Allergy Unknown Verified 12/09/20 10:53 Glucophage Allergy Unknown Uncoded 12/06/20 21:53 [facility] NPU Other Psychiatric History: Other Psychiatric History: No changes since last H&P performed by Dr. Wallace, 12/06/2020 Mental Status Exam MSE Comments: Lying in bed, appears older than stated age, appropriately groomed and dressed, wearing hospital scrubs, calm, cooperative, quiet, good eye contact Psychomotor activity is neither increased or decreased, no agitation Speaks softly in a somewhat mumbling manner, fair articulation, spontaneous, not pressured I feel okay, somewhat constricted affect, not labile Alert and oriented to person, place, time, situation Memory and concentration appear to be intact per interview Intellectual functioning appears to be below average to average at best based on vocabulary, interview Thought process, linear, occasional circumstantial speech requiring redirection for clarification to responses but no flight of ideas, no looseness of associations Thought content, perseveration, paranoid delusions, no hallucinations, no suicidal homicidal ideation Insight and judgment appear to be fair to intact Vitals/I&O/Wt Last Vital Signs Temp 98.8 F 12/09/20 11:07 Pulse 90 12/09/20 11:07 Resp 20 H 12/09/20 11:07 BP 137/83 12/09/20 11:07 Pulse Ox 96 12/09/20 11:07 Weight last 48 hrs Weight 127.006 kg Data NPU : 12/09/20 07:41 12/09/20 07:41 A&P Assessment and plan (1) Schizophrenia: Status: Acute Qualifiers: Schizophrenia type: paranoid schizophrenia Qualified Code(s): F20.0 - Paranoid schizophrenia Additional A&P Information Patient with ongoing paranoia the people are taking things from him in the care home in the context of polypharmacy, confusion creating conditions for situations leading to verbal and physical agitation with recent psychiatric hospitalization under similar circumstances. Patient would benefit from medication stabilization with reevaluation of patient's med list given concerns about polypharmacy with multiple sedating medications and multiple ant ipsychotics which could exacerbate symptoms leading to his presentation. VOLUNTARY ADMIT to inpatient psychiatry Medication reconciliation performed, restart home medication Encouraged patient to participate in unit activities, unit milieu Encourage staff to provide behavioral redirection Involuntary Hold Information 96 Hour Hold: 96 Hour Involuntary Admission: No Attestations NPU Medical Necessity Statement*: Require psychiatric hospitalization for medication stabilization, coordination for safe discharge Anticipate hospital stay to exceed 2 midnights Time Spent in Patient Care: Greater than 35 minutes (>than 50% of time spent in counselling and/or direct pt care on unit) . Coding Level of Care Code Acute Dust Sampler for [facility] Diagnoses Schizophrenia F20.0 Schizophrenia type: paranoid schizophrenia
[2020-12-09 14:00] VITALS: BP 126/89; PULSE 87; RESP 16; TEMP 36.9; O2SAT 97
[2020-12-09] MEDS: gabapentin 300 mg Capsule 600 MG PO ×2 (16:34→20:08)
[2020-12-09] MEDS: tamsulosin 0.4 mg Capsule PO (17:53)
[2020-12-09] MEDS: LORazepam 1 mg Tablet 2 MG PO (18:06)
--- NOTE | 2020-12-09 18:06 | PC.NURSE ---
1800 Ativan When giving patient 1800 medications (Ativan x2 and Flomax), patient took the Flomax and took one Ativan. Patient then dropped the second Ativan in the floor. After retrieving it, this nurse went to waste the medication with second nurse and pull a new pill to give to patient. Witnessed with second nurse, ROXIE Mccurdy. When taking patient the new Ativan (1mg), the patient started yelling at this nurse that he isn't suppose to be taking this medication, patient becoming more anxious and continuing to yell. Security present at doorway of patient's room. Reassured patient that he does not have to take this medication, that he does have the right to refuse and explained that we will speak with the physician about this medication. Patient still seems to be upset, though not yelling at this time. Patient in room, resting on bed at this time. This nurse then went back to [facility] to return medication with second nurse to verify, ROXIE Mccurdy.
[2020-12-09] MEDS: diphenhydrAMINE 25 mg Capsule 50 MG PO (20:07)
[2020-12-09] MEDS: divalproex DR 500 mg Tablet 1000 MG PO (20:07)
[2020-12-09] MEDS: famotidine 20 mg Tablet PO (20:08)
[2020-12-09] MEDS: tolterodine 2 mg Tablet 1 MG PO (20:09)
[2020-12-09 21:31] VITALS: BP 115/66; PULSE 80; RESP 17; TEMP 36.6; O2SAT 96
[2020-12-10 06:00] VITALS: BP 139/88; PULSE 89; RESP 17; TEMP 36.6; O2SAT 100
[2020-12-10] MEDS: pantoprazole DR 40 mg Tablet PO (06:07)
[2020-12-10] MEDS: levothyroxine 25 mcg Tablet PO (06:07)
[2020-12-10] MEDS: divalproex DR 500 mg Tablet PO (06:07)
[2020-12-10] MEDS: cholecalciferol (vitamin D3) 1,000 unit Tablet 1000 UNIT PO (06:07)
[2020-12-10] MEDS: lisinopril 10 mg Tablet PO (06:07)
[2020-12-10] MEDS: meloxicam 7.5 mg tablet PO (06:08)
[2020-12-10] MEDS: latanoprost 0.005% Op Soln 2.5 mL Btl 1 DROP EYE-BOTH (06:11)
[2020-12-10] MEDS: fluticasone nasal spray 16gm Btl 2 SPRAY INTRANASAL (06:12)
[2020-12-10] MEDS: lithium carbonate ER 450 mg Tablet PO (07:52)
[2020-12-10] MEDS: diphenhydrAMINE 25 mg Capsule 50 MG PO ×2 (07:53→19:55)
[2020-12-10] MEDS: gabapentin 300 mg Capsule 600 MG PO ×3 (07:53→19:55)
[2020-12-10] MEDS: tolterodine 2 mg Tablet 1 MG PO ×2 (07:53→19:55)
--- NOTE | 2020-12-10 11:14 | PM.NPN ---
Subjective NPU Subjective: Interval history: Patient was initially calm and cooperative while lying in bed during interview this morning denying any interval complaints other than about being overmedicated at his care home. Denies any auditory or visual hallucinations Denies any interval depressive symptoms, denies any suicidal ideation Reports that his appetite is good Patient subsequently coming up to nursing station counter and demanding to speak to the doctor despite reassurance that he had been previously interviewed. Patient started pounding on the counter calling everyone a liar. Continues to have difficulty with recent memory including date Mental Status Exam MSE Comments: Lying in bed, wearing hospital scrubs, calm, cooperative, quiet, good eye contact Psychomotor activity is neither increased or decreased, no agitation Speaks softly, rambling, fair articulation, spontaneous, not pressured I feel okay, somewhat constricted affect, not labile Alert and oriented to person, place, time, situation Memory and concentration appear to be poor to fair at best, difficulty with today's date as well as forgetting that he was previously interviewed while in his room, per interview Thought process, circumstantial speech requiring redirection, no flight of ideas, no looseness of associations Thought content, perseveration, paranoid delusions, no hallucinations, no suicidal homicidal ideation Insight and judgment appear to be fair to intact Vitals/I&O/Wt Last Vital Signs Temp 97.9 F 12/10/20 06:00 Pulse 89 12/10/20 06:00 Resp 17 12/10/20 06:00 BP 139/88 12/10/20 06:00 Pulse Ox 100 12/10/20 06:00 12/09/20 12/10/20 12/10/20 22:59 06:59 14:59 Intake Total 240 / 480 Balance 240 / 480 Weight last 48 hrs Weight 127.006 kg Weight 127.006 kg Data NPU : 12/09/20 07:41 12/09/20 07:41 A&P Assessment and plan (1) Schizophrenia: Status: Acute Qualifiers: Schizophrenia type: paranoid schizophrenia Qualified Code(s): F20.0 - Paranoid schizophrenia Additional A&P Information Continued paranoia, irritability, questionable cognitive decrements with difficulty with recent memory leading to worsening irritability, acting out START haloperidol 5 mg by mouth twice daily targeting paranoia, mood Continue to monitor and provide behavioral redirection Involuntary Hold Information 96 Hour Hold: 96 Hour Involuntary Admission: No Attestations NPU Medical Necessity Statement*: Continues to require psychiatric hospitalization for medication stabilization, coordination for safe discharge Coding Level of Care Code Acute Pharmacy Service Associate for [facility] Diagnoses Schizophrenia F20.0 Schizophrenia type: paranoid schizophrenia
[2020-12-10] MEDS: haloperidol 5 mg Tablet PO ×2 (12:04→17:28)
[2020-12-10 14:00] VITALS: BP 132/74; PULSE 72; RESP 17; TEMP 36.3; O2SAT 95
[2020-12-10] MEDS: tamsulosin 0.4 mg Capsule PO (17:28)
[2020-12-10] MEDS: divalproex DR 500 mg Tablet 1000 MG PO (19:55)
[2020-12-10] MEDS: famotidine 20 mg Tablet PO (20:10)
[2020-12-10 20:20] VITALS: BP 140/81; PULSE 98; RESP 15; TEMP 36.8; O2SAT 96
--- NOTE | 2020-12-11 00:49 | PC.NURSE ---
while rounding pt was touching his genitalia. pt covered himself and asked space engineer if she would come closer , space engineer responded with no i have to finish my rounding , pt asked space engineer have you ever had sex before , space engineer responded and said that was a personal and inappropriate question . pt asked space engineer again have you ever had sex before . space engineer left pt's room and went back to nurses station. 0045/stiven/ 12/11/2020
[2020-12-11 06:00] VITALS: BP 145/81; PULSE 89; RESP 15; TEMP 35.9; O2SAT 98
[2020-12-11] MEDS: latanoprost 0.005% Op Soln 2.5 mL Btl 1 DROP EYE-BOTH (06:16)
[2020-12-11] MEDS: fluticasone nasal spray 16gm Btl 2 SPRAY INTRANASAL (06:16)
[2020-12-11] MEDS: cholecalciferol (vitamin D3) 1,000 unit Tablet 1000 UNIT PO (06:17)
[2020-12-11] MEDS: meloxicam 7.5 mg tablet PO (06:17)
[2020-12-11] MEDS: levothyroxine 25 mcg Tablet PO (06:17)
[2020-12-11] MEDS: pantoprazole DR 40 mg Tablet PO (06:17)
[2020-12-11] MEDS: lisinopril 10 mg Tablet PO (06:17)
[2020-12-11] MEDS: divalproex DR 500 mg Tablet PO (06:17)
[2020-12-11] MEDS: famotidine 20 mg Tablet PO ×2 (08:17→19:35)
[2020-12-11] MEDS: gabapentin 300 mg Capsule 600 MG PO ×3 (08:17→19:34)
[2020-12-11] MEDS: tolterodine 2 mg Tablet 1 MG PO ×2 (08:17→19:35)
[2020-12-11] MEDS: lithium carbonate ER 450 mg Tablet PO (08:18)
[2020-12-11] MEDS: diphenhydrAMINE 25 mg Capsule 50 MG PO ×2 (08:20→19:34)
[2020-12-11] MEDS: haloperidol 5 mg Tablet PO ×2 (08:21→17:32)
--- NOTE | 2020-12-11 10:19 | PM.NPN ---
Subjective NPU Subjective: Interval history: Continues to have intermittent episodes of irritability often times related to confusion Continues to have paranoia about people taking his things at the [facility] Denies any depressive symptoms, denies any suicidal ideation Reports tolerating medication changes well, no reports of any medication side effects Occasional verbal agitation which is easily redirected Mental Status Exam MSE Comments: Lying in bed, calm, cooperative, somewhat disheveled wearing hospital scrubs, good eye contact Psychomotor activity is neither increased or decreased, no agitation Speaks softly, fair articulation, spontaneous, not pressured Okay, somewhat constricted affect, not labile Alert and oriented to person, place, time, situation Memory and concentration appear to be fair per interview Thought process, circumstantial speech requiring redirection, no flight of ideas, no looseness of associations Thought content, perseveration, paranoid delusions, no hallucinations, no suicidal homicidal ideation Insight and judgment appear to be fair to intact Vitals/I&O/Wt Last Vital Signs Temp 96.7 F L 12/11/20 06:00 Pulse 89 12/11/20 06:00 Resp 15 12/11/20 06:00 BP 145/81 12/11/20 06:00 Pulse Ox 98 12/11/20 06:00 Weight last 48 hrs Weight 127.006 kg Data NPU : 12/09/20 07:41 12/09/20 07:41 A&P Assessment and plan (1) Schizophrenia: Status: Acute Qualifiers: Schizophrenia type: paranoid schizophrenia Qualified Code(s): F20.0 - Paranoid schizophrenia Additional A&P Information Intermittent irritability which appears to be in conjunction with confusion, patient states redirected in these situations CONTINUE current medication, continue to monitor Involuntary Hold Information 96 Hour Hold: 96 Hour Involuntary Admission: No Attestations NPU Medical Necessity Statement*: Continues to require psychiatric hospitalization for medication stabilization, coordination for safe discharge Coding Level of Care Code Acute Passenger Flagman for [facility] Diagnoses Schizophrenia F20.0 Schizophrenia type: paranoid schizophrenia
[2020-12-11 13:27] VITALS: BP 142/74; PULSE 62; RESP 18; TEMP 36.7; O2SAT 96
--- NOTE | 2020-12-11 15:52 | PC.NURSE ---
Shift Summary Patient had improved mood today. No anger outbursts and he is taking medication with out resistance. He would not agree to take a shower but he did change his scrubs and bedding.
--- NOTE | 2020-12-11 16:42 | PC.NURSE ---
Patient Behavior During dinner patient was asked to remove the blanket he had wrapped around him when he entered the day room. He started yelling no and get me my food now. Staff was able to verbally de escalate the patient and he took his blanket to his room.
--- NOTE | 2020-12-11 16:50 | PC.NURSE ---
Patient Behavior Flagler yelling from day room. Staff arrived and patient was yelling at other patients that they were trying to take another patients food. The other 2 patients remained calm but RL continued to escalate and nick his fist back towards staff. Security was called. Staff was able to get the patient to agree to be moved. He was taken to the other section where there are no other patients at this time. Security had a conversation with him about his outbursts.
[2020-12-11] MEDS: tamsulosin 0.4 mg Capsule PO (17:31)
[2020-12-11] MEDS: divalproex DR 500 mg Tablet 1000 MG PO (19:35)
[2020-12-11 20:03] VITALS: BP 129/74; PULSE 65; RESP 16; TEMP 36.9; O2SAT 98
--- NOTE | 2020-12-11 20:42 | PC.NURSE ---
Often confused and disoriented.
[2020-12-12] MEDS: levothyroxine 25 mcg Tablet PO (05:55)
[2020-12-12] MEDS: cholecalciferol (vitamin D3) 1,000 unit Tablet 1000 UNIT PO (05:55)
[2020-12-12] MEDS: divalproex DR 500 mg Tablet PO (05:55)
[2020-12-12] MEDS: meloxicam 7.5 mg tablet PO (05:55)
[2020-12-12] MEDS: lisinopril 10 mg Tablet PO (05:55)
[2020-12-12] MEDS: fluticasone nasal spray 16gm Btl 2 SPRAY INTRANASAL (05:56)
[2020-12-12] MEDS: pantoprazole DR 40 mg Tablet PO (05:56)
[2020-12-12] MEDS: latanoprost 0.005% Op Soln 2.5 mL Btl 1 DROP EYE-BOTH (05:56)
[2020-12-12 06:00] VITALS: BP 138/76; PULSE 89; RESP 20; TEMP 37.2; O2SAT 95
[2020-12-12] MEDS: tolterodine 2 mg Tablet 1 MG PO ×2 (08:28→20:13)
[2020-12-12] MEDS: haloperidol 5 mg Tablet PO ×2 (08:28→17:20)
[2020-12-12] MEDS: gabapentin 300 mg Capsule 600 MG PO ×2 (08:28→20:13)
[2020-12-12] MEDS: diphenhydrAMINE 25 mg Capsule 50 MG PO ×2 (08:29→20:14)
[2020-12-12] MEDS: lithium carbonate ER 450 mg Tablet PO (08:29)
[2020-12-12] MEDS: famotidine 20 mg Tablet PO ×2 (08:29→20:13)
--- NOTE | 2020-12-12 13:41 | PM.NPN ---
Subjective NPU Subjective: Interval history: Reports improved mood, denies any interval irritability, denies any interval depressive symptoms Denies any suicidal ideation Denies any interval psychotic symptoms Continues to perseverate about senior care and his possessions Reports being compliant with medication and denies any medication side effects Mental Status Exam MSE Comments: Sitting in the day room, good eye contact, appropriately groomed and dressed in hospital scrubs, calm, cooperative Psychomotor activity is neither increased or decreased, no agitation Speaks softly, fair articulation, spontaneous, not pressured I feel good, full range, not labile Alert and oriented to person, place, time, situation Memory and concentration appear to be fair per interview Thought process, circumstantial speech requiring redirection, no flight of ideas, no looseness of associations Thought content, perseveration, no stated delusions, no hallucinations, no suicidal homicidal ideation Insight and judgment appear to be fair to intact Vitals/I&O/Wt Last Vital Signs Temp 98.9 F 12/12/20 06:00 Pulse 89 12/12/20 06:00 Resp 20 H 12/12/20 06:00 BP 138/76 12/12/20 06:00 Pulse Ox 95 12/12/20 06:00 Data NPU : 12/09/20 07:41 12/09/20 07:41 A&P Assessment and plan (1) Schizophrenia: Status: Acute Qualifiers: Schizophrenia type: paranoid schizophrenia Qualified Code(s): F20.0 - Paranoid schizophrenia Additional A&P Information Improving, no interval behavioral disturbances CONTINUE current medication, continue to monitor Involuntary Hold Information 96 Hour Hold: 96 Hour Involuntary Admission: No Attestations NPU Medical Necessity Statement*: Continues to require psychiatric hospitalization for medication stabilization, coordination for safe discharge Coding Level of Care Code Acute Boom Conveyor Operator for [facility] Diagnoses Schizophrenia F20.0 Schizophrenia type: paranoid schizophrenia
[2020-12-12 14:00] VITALS: BP 106/77; PULSE 90; RESP 18; TEMP 36.6; O2SAT 96
[2020-12-12] MEDS: tamsulosin 0.4 mg Capsule PO (17:20)
[2020-12-12 19:33] VITALS: BP 127/77; PULSE 96; RESP 18; TEMP 36.6; O2SAT 95
[2020-12-12] MEDS: divalproex DR 500 mg Tablet 1000 MG PO (20:14)
[2020-12-12] MEDS: acetaminophen 325 mg Tablet 650 MG PO (20:14)
--- NOTE | 2020-12-12 22:52 | PC.NURSE ---
PM Assessment PT Calm and cooperative with staff, repeats answers to questions multiple times, he is alert and oriented. Pt speech is pressured, rambling, and unclear. He is smiling at staff, came out of his room for a snack, showered, and is in his room at this time. No aggression with staff, at times, pt seems confused and disorganized in his thinking. Pt denies SI/HI, Denies AH/VH. At times, pt will yell out in his room, when staff arrives to see if he needs anything will say, Why are you here? Pt refuses to leave his door open regardless of redirection and setting of expectations.
[2020-12-13 06:00] VITALS: BP 141/94; PULSE 92; RESP 20; TEMP 36.5; O2SAT 97
[2020-12-13] MEDS: latanoprost 0.005% Op Soln 2.5 mL Btl 1 DROP EYE-BOTH (06:06)
[2020-12-13] MEDS: fluticasone nasal spray 16gm Btl 2 SPRAY INTRANASAL (06:07)
[2020-12-13] MEDS: levothyroxine 25 mcg Tablet PO (06:07)
[2020-12-13] MEDS: cholecalciferol (vitamin D3) 1,000 unit Tablet 1000 UNIT PO (06:07)
[2020-12-13] MEDS: pantoprazole DR 40 mg Tablet PO (06:08)
[2020-12-13] MEDS: meloxicam 7.5 mg tablet PO (06:08)
[2020-12-13] MEDS: lisinopril 10 mg Tablet PO (06:08)
[2020-12-13] MEDS: divalproex DR 500 mg Tablet PO (06:08)
[2020-12-13] MEDS: gabapentin 300 mg Capsule 600 MG PO (07:35)
[2020-12-13] MEDS: famotidine 20 mg Tablet PO (07:36)
[2020-12-13] MEDS: diphenhydrAMINE 25 mg Capsule 50 MG PO (07:36)
[2020-12-13] MEDS: lithium carbonate ER 450 mg Tablet PO (07:36)
[2020-12-13] MEDS: tolterodine 2 mg Tablet 1 MG PO (07:36)
--- NOTE | 2020-12-13 07:37 | PC.NURSE ---
refused scheduled haldol pill this morning
--- NOTE | 2020-12-13 09:10 | P.DS_ITS ---
Diagnoses at Discharge Discharge Diagnosis (1) Schizophrenia: Status: Acute Qualifiers: Schizophrenia type: paranoid schizophrenia Qualified Code(s): F20.0 - Paranoid schizophrenia Reason for Visit Reason for Visit: COMBATIVE Hospital Course Hospital Course 55-year-old male with history of paranoid schizophrenia admitted from residential immediately after being discharged from this inpatient psychiatry unit secondary to episodes of physical and verbal agitation in the context of believing people are taking his things from his room. Patient perseverates about people taking his things and becomes verbally agitated and will even become physically agitated hitting a surface although he is easily redirected. Patient continued to have some perseveration and paranoid about people taking his things at the time of admission. It was noted that the residential had returned him to several sedating medications with an ongoing concern about polypharmacy and worsening confusion related to the anticholinergic and sedating effects of multiple medications which may exacerbate his confusion. Patient was reduced to 1 antipsychotic which would include his monthly Haldol Decanoate injection and haloperidol 10 mg by mouth twice daily. Patient appears to have been restarted on Ativan twice daily at the residential which was discontinued during this hospitalization with recommendation to not restart this medication. Patient was agreeable throughout his hospital stay with behavioral redirection and denied any mood symptoms, denied any depressed symptoms, denied any suicidal ideation and denied any thoughts about harming anyone else. Patient part icipated in unit milieu to include group sessions with no reports of any behavioral disturbances. Patient was not suicidal and did not endorse any psychotic symptoms at the time of discharge and did not appear to pose an imminent threat of harm to self or others. Continues to be a low to moderate risk of harm to self or others given no current suicidal ideation or thoughts about harming others and no current endorsement of psychiatric symptoms although patient's risk may be elevated if he is noncompliant with this medication or medication management follow-up or possibly experiences some agitation or confusion in the context of polypharmacy leading to unexpected, impulsive behavior. Risk mitigation included psychiatric hospitalization for observation for any suicidal or homicidal ideation or behaviors, medication stabilization, recommendation to continue compliance with outpatient medication management follow-up. Patient communicated his understanding of the need to continue compliance with his medication and medication management follow-up as well as exercising more adaptive coping strategies in the context of frustrating situations in a residential environment in order to further mitigate his risk of harm to self and others. Involuntary Hold Information 96 Hour Hold: 96 Hour Involuntary Admission: No Mental Status Exam MSE Comments: Standing next to the nursing station, calm, cooperative, good eye contact, appropriately groomed and dressed in hospital scrubs Psychomotor activity is neither increased or decreased, no agitation Speaks softly, fair articulation, spontaneous, not pressured Good, full range, not labile Alert and oriented to person, place, time, situation Memory and concentration appear to be fair per interview Thought process, circumstantial speech requiring redirection, no flight of ideas, no looseness of associations Thought content, perseveration, no stated delusions, no hallucinations, no suicidal homicidal ideation Insight and judgment appear to be fair to intact Discharge Data Vitals: Last Vital Signs Temp 97.7 F 12/13/20 06:00 Pulse 92 12/13/20 06:00 Resp 20 H 12/13/20 06:00 BP 141/94 12/13/20 06:00 Pulse Ox 97 12/13/20 06:00 Discharge Plan Discharge Patient Disposition: Home Condition: Stable Prescriptions: Continued divalproex 500 mg Tablet,Delayed Release (Dr/Ec) 500 mg PO DAILY@07 RF: 0 divalproex 500 mg Tablet,Delayed Release (Dr/Ec) 1,000 mg PO DAILY@20 RF: 0 tamsulosin [Flomax] 0.4 mg Capsule 0.4 mg PO DAILY@18 RF: 0 latanoprost 0.005 % Drops 1 drp OPHTHALMIC (EYE) DAILY@07 RF: 0 meloxicam 7.5 mg Tablet 7.5 mg PO DAILY@07 RF: 0 pantoprazole [Protonix] 40 mg Tablet,Delayed Release (Dr/Ec) 40 mg PO DAILY@07 RF: 0 lisinopril 10 mg Tablet 10 mg PO DAILY@07 RF: 0 fluticasone propionate 50 mcg/actuation [place],Suspension 2 spray INTRANASAL DAILY@07 RF: 0 famotidine [Pepcid] 20 mg Tablet 20 mg PO BID@08,20 RF: 0 lithium carbonate 450 mg Tablet Extended Release 450 mg PO DAILY Qty: 30 RF: 0 gabapentin 600 mg Tablet 600 mg PO TID@08,14,20 RF: 0 haloperidol 5 mg Tablet 10 mg PO BID@08,20 RF: 0 Detrol 1 mg Tablet 1 mg PO BID@,20 RF: 0 Zyprexa 10 mg Tablet 10 mg PO Q6H PRN (Reason: Agitation) RF: 0 levothyroxine 25 mcg Tablet 25 mcg PO DAILY@07 RF: 0 Benadryl 25 mg Capsule 50 mg PO BID@08,20 RF: 0 Nitrostat 0.4 mg Tablet, Sublingual 0.4 mg SUBLINGUAL Q5M PRN (Reason: Chest Pain) RF: 0 docusate sodium 100 mg Capsule 100 mg PO DAILY PRN (Reason: Constipation) RF: 0 haloperidol decanoate 50 mg/mL Solution 100 mg IM .ONCE EVERY 28 DAYS RF: 0 Restasis 0.05 % Dropperette 1 drp OPHTHALMIC (EYE) Q12H RF: 0 Zyprexa 10 mg Recon Soln 10 mg IM Q24H PRN (Reason: Agitation) RF: 0 Vitamin D3 25 mcg (1,000 unit) Tablet 25 mcg PO DAILY@07 RF: 0 Janumet 50-500 mg Tablet 1 tab PO BID RF: 0 Discontinued doxepin 50 mg Capsule 50 mg PO BEDTIME@20 RF: 0 olanzapine [Zyprexa] 10 mg Tablet 10 mg PO DAILY@20 RF: 0 olanzapine [Zyprexa Zydis] 20 mg Tablet,Disintegrating 20 mg PO Q4H PRN (Reason: behaviors) RF: 0 lorazepam [Ativan] 1 mg Tablet 2 mg PO BID RF: 0 Discharge Orders: Discharge Order (Routine); Ordered 12/13/20 Ordered By: Michaela Dwyer Allan Discharge Diet: Diabetic Discharge Activity: Resume usual activity Patient Instructions: Opioid Safety Discharge Attestations NPU Time Spent in Discharge Care*: greater than 30 min Status at Discharge: Cognitive status at discharge: mildly impaired cognition , Behavioral status at discharge: cooperative , Functional status at discharge: independent ambulation Overall status at discharge: patient is back to baseline Coding Level of Care Code Acute Chg FW DC note Diagnoses Schizophrenia F20.0 Schizophrenia type: paranoid schizophrenia
[2020-12-13 09:14] VITALS: BP 141/94; PULSE 92; RESP 20; TEMP 36.5; O2SAT 97
--- NOTE | 2020-12-13 09:38 | PC.SOCIAL ---
IMM was completed on 12/12/20 @ 9178. Pt was given a copy of Medicare rights
[2020-12-13] MEDS: haloperidol 5 mg Tablet PO (09:56)
[2020-12-13] MEDS: haloperidol decanoate 100 mg/mL INJ 1 mL IM (10:46)
--- NOTE | 2020-12-13 10:47 | PC.NURSE ---
HALDOL DECANOATE 100 MG GIVEN IM ORDERED BY PHYSICIAN, INJECTION GIVEN IM IN RIGHT DELTOID LOT [id number] EXP 05/24
== END 2020-12-13 14:06 | disposition skilled nursing facility (03) | DRG 885 ==
LOC: ER 07:32 → NP 10:20
PROVIDERS: Admitting Provider Psychiatry & Neurology Psychiatry; Emergency Provider Emergency Medicine; Visit Provider Psychiatry & Neurology Psychiatry
DX: F20.0 Paranoid schizophrenia (principal); Z79.899 Other long term (current) drug therapy
CPT/HCPCS: 36415; 36416; 80048; 80053; 80164; 80178; 80306; 80307; 81003; 82550; 82962; 83735; 84439; 84443; 85025; 93005; 96372; 99285; J1630; J1631

== ENCOUNTER 2023-01-15 21:17 | Emergency (ER) | payer MEDICARE, MEDICAID, SELFPAY ==
[2023-01-15 21:18] VITALS: BP 161/101; PULSE 113; RESP 18; TEMP 36.8; O2SAT 91; BMI 53.9
--- NOTE | 2023-01-15 21:23 | PC.NURSE ---
Pt. states that he has history of gastritis and GERD and takes medication for it. Pt. ate dinner at 1730 and pain started at 1830
--- NOTE | 2023-01-15 21:31 | XRR_ITS ---
PROCEDURE INFORMATION: Exam: XR Chest Exam date and time: 01/15/2023 9:35 PM Age: 57 years old Clinical indication: Chest wall pain; Additional info: Chest pain TECHNIQUE: Imaging protocol: Radiologic exam of the chest. Views: 1 view. COMPARISON: No relevant prior studies available. FINDINGS: Lungs: No consolidation. Pleural spaces: No pleural effusion. No pneumothorax. Heart/Mediastinum: No cardiomegaly. Bones/joints: Degenerative spine changes are noted. XR/XR chest 1V portable [id number] IMPRESSION: No acute abnormality demonstrated.
--- NOTE | 2023-01-15 21:39 | ED_ITS ---
HPI - Chest Pain General: Chief Complaint: Chest Pain Stated Complaint: CP/ARM PAIN Time Seen by Provider: 01/15/23 21:30 History of Present Illness: Patient presents to the ER complaining of chest pain. States chest pain started about 630 when he was out feeding his birds and left his bird feeder to his chest. Patient states the pain in his chest is constant midsternal and has not went away. Patient states he had pain like this approximately 10 years ago but he was cleared through a negative stress test at that time. Patient has not had any heart or chest pain work-up since then. MD complaint: chest pain and chest discomfort Onset (ago): hour(s) (About 3 hours ago) Timing of current episode: constant Prior episodes: Yes Onset: during exertion Pain location: substernal Severity: mild Quality: aching Relieving factors: nothing Exacerbating factors: palpation Associated symptoms: Reports diaphoresis Review of Systems Const: Reports: diaphoresis Physical Exam Const: COMMON NORMALS: no acute distress, patient oriented x3, no limitations, healthy appearing, alert and well nourished NUTRITIONAL APPEARANCE: obese HENMT: COMMON NORMALS: normocephalic, atraumatic, hearing grossly normal bilaterally, external ears normal, Normal external nose present and moist oral mucous membranes HEAD & SCALP: normocephalic and atraumatic NOSE: Normal external nose present EXTERNAL EAR: Yes external ears normal Neck/C-Spine: COMMON NORMALS: full ROM, no lymphadenopathy, supple, no men ingeal signs, no JVD and Thyroid normal THYROID: Thyroid normal Chest: COMMONS NORMALS: normal inspection of the chest CHEST: Yes localized rib tenderness with anteroposterior compression Resp: COMMON NORMALS: normal respiratory effort, No retractions, No use of accessory muscles and clear to auscultation bilaterally AUSCULTATION: clear to auscultation bilaterally Cardio: COMMON NORMALS: no JVD, regular rate, regular rhythm, S1 normal heart sound present, S2 normal heart sound present, No gallops present (Cardio), No clicks present (Cardio), No murmurs present (Cardio) and No rub (Cardio) RATE: regular rate RHYTHM: regular rhythm HEART SOUNDS: S1 normal heart sound present and S2 normal heart sound present GI: COMMON NORMALS: Normal to inspection, nondistended, normoactive bowel sounds present, Soft to palpation, non-tender, No hepatosplenomegaly present and no masses PALPATION: Yes Soft to palpation and Yes No hepatosplenomegaly present : COMMON NORMALS: Yes no CVA tenderness BLADDER/KIDNEY EXAM: Yes no CVA tenderness Back/Pelvis: COMMON NORMALS: no CVA tenderness Neuro: COMMON NORMALS: patient oriented x3 SENSORIUM/ORIENTATION: Yes alert MENINGEAL SIGNS: Yes no meningeal signs Course Vital Signs: Vital signs: Vital Signs Temperature 98.3 F 01/15/23 21:18 Pulse Rate 91 01/15/23 23:00 Respiratory Rate 22 H 01/15/23 23:00 Blood Pressure 127/100 01/15/23 23:00 Pulse Oximetry 91 01/15/23 23:00 MDM - Chest Pain Medical Decision Making Patient presents to the ER with chest pain that is worse when he lifted his bird feeder up. Lab work was obtained as well as serial EKGs and serial troponins. EKGs were negative for acute changes, lab work showed a baseline troponin of 18 and a 2-hour troponin 21 for delta of 3. Patient was given a shot of Toradol IM for pain. Patient's blood pressure went down from 161/101 to 127/100 and pulse rate dropped from 1 13-91. Is thought that this is noncardiac chest pain in nature so patient will be discharged home to follow-up with his family practice doc for further evaluation and treatment. 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 Differential Diagnosis Unlikely acute massive pulmonary embolism, acute respiratory failure, acute myocardial infarction, cardiac arrest or sudden cardiac Medical Records I reviewed the patient's medical records. Lab Data I reviewed the patient's lab results. 01/15/23 21:53 01/15/23 21:53 Radiology Impressions Chest X-Ray 01/15/23 21:31 IMPRESSION: No acute abnormality demonstrated. Laboratory Results WBC 8.3 10^3/uL (4.0-10.0) 01/15/23 21:53 RBC 5.06 10^6/uL (4.1-5.3) 01/15/23 21:53 Hgb 13.3 g/dL (11.7-16.6) 01/15/23 21:53 Hct 44.4 % (42.0-52.0) 01/15/23 21:53 MCV 87.7 fl (80-94) 01/15/23 21:53 MCH 26.3 pg (28.0-34.0) L 01/15/23 21:53 MCHC 30.0 g/dL (30.0-36.0) 01/15/23 21:53 RDW 15.9 % (12.1-15.1) H 01/15/23 21:53 Plt Count 246 10^3/cmm (130-400) 01/15/23 21:53 MPV 10.8 fL (7.4-10.4) H 01/15/23 21:53 Neut % (Auto) 57.2 % 01/15/23 21:53 Lymph % (Auto) 29.3 % 01/15/23 21:53 [place] % (Auto) 7.8 % 01/15/23 21:53 Eos % (Auto) 4.2 % 01/15/23 21:53 Baso % (Auto) 0.4 % 01/15/23 21:53 Neut # (Auto) 4.77 10^3/uL (1.8-7.7) 01/15/23 21:53 Lymph # (Auto) 2.4 10^3/uL (0.8-4.8) 01/15/23 21:53 [place] # (Auto) 0.7 10^3/uL (0.2-0.9) 01/15/23 21:53 Eos # (Auto) 0.4 10^3/uL (0.0-0.8) 01/15/23 21:53 Baso # (Auto) 0.0 10^3/uL (0.0-0.1) 01/15/23 21:53 Nucleated RBC % (auto) 0 % 01/15/23 21:53 Nucleated RBCs # 0.0 /100WBC 01/15/23 21:53 Sodium 134 mmol/L (136-145) L 01/15/23 21:53 Potassium 4.8 mmol/L (3.5-5.1) 01/15/23 21:53 Chloride 99 mmol/L (98-107) 01/15/23 21:53 Carbon Dioxide 25 mmol/L (22-29) 01/15/23 21:53 Anion Gap 14.8 (5-19) 01/15/23 21:53 BUN 17 mg/dL (6-20) 01/15/23 21:53 Creatinine 0.7 mg/dL (0.7-1.2) 01/15/23 21:53 GFR Calculation 117.1 mL/min (90-130) 01/15/23 21:53 Glucose 268 mg/dL (65-115) H 01/15/23 21:53 Calculated Osmolality 289 mOsm/kg (285-295) 01/15/23 21:53 Calcium 9.1 mg/dL (8.5-10.5) 01/15/23 21:53 Total Bilirubin 0.3 mg/dL (0.15-1.2) 01/15/23 21:53 AST 17 U/L (0-40) 01/15/23 21:53 ALT 20 U/L (0-41) 01/15/23 21:53 Alkaline Phosphatase 127 U/L (40-130) 01/15/23 21:53 Troponin T Baseline 18 ng/L (0-15) H 01/15/23 21:53 Troponin T 120 Minute 21.60 ng/L (0-15) H 01/15/23 23:20 Delta Troponin T 3.60 ABS# (0-10) 01/15/23 23:20 NT-Pro-B Natriuret Pep 36 pg/mL (0-125) 01/15/23 21:53 Total Protein 7.6 g/dL (6.6-8.7) 01/15/23 21:53 Albumin 3.9 g/dL (3.5-5.2) 01/15/23 21:53 Globulin 3.7 g/dL (1.3-4.6) 01/15/23 21:53 Urine Color Yellow (Yellow) 01/15/23 22:05 Urine Appearance Clear (CLEAR) 01/15/23 22:05 Urine pH 8 (5-7) H 01/15/23 22:05 Ur Specific [place] 1.015 (1.005-1.030) 01/15/23 22:05 Urine Protein Trace (Negative) 01/15/23 22:05 Urine Glucose (UA) 4+ (Normal) H 01/15/23 22:05 Urine Ketones 1+ (Negative) H 01/15/23 22:05 Urine Blood Neg (Negative) 01/15/23 22:05 Urine Nitrate Negative (Negative) 01/15/23 22:05 Urine Bilirubin Neg (Negative) 01/15/23 22:05 Prot Sulfosalicylic Acd Negative (Negative) 01/15/23 22:05 Urine Urobilinogen Neg mg/dL (Negative) 01/15/23 22:05 Ur Leukocyte Esterase Negative (Negative) 01/15/23 22:05 Urine RBC None /hpf (0-2) 01/15/23 22:05 Urine WBC None /hpf (0-5) 01/15/23 22:05 Ur Squamous Epith Cells 0-4 /hpf (0-5) H 01/15/23 22:05 Amorphous Sediment Not Reportable 01/15/23 22:05 Urine Bacteria Trace /hpf (NONE) 01/15/23 22:05 EKG Data EKG 1: I personally reviewed and interpreted this EKG as follows: EKG interpretation date: 01/15/23 EKG interpretation time: 08:42 Prior EKG tracings: not available for review Interpretation: EKG showed normal sinus rhythm with ventricular rate of 89 bpm, DC interval 133, QRS 89, QTc of 429, nonspecific ST-T wave changes EKG 2: I personally reviewed and interpreted this EKG as follows: EKG interpretation date: 01/15/23 EKG interpretation time: 23:33 Prior EKG tracings: available for review Interpretation: EKG showed normal sinus rhythm with ventricular rate of 93 bpm, DC interval 125, QRS duration of 98, no ST-T wave changes Discharge Plan Discharge Patient Disposition: Home Clinical Impression: Atypical chest pain Condition: Stable Prescriptions: No Action divalproex 500 mg Tablet,Delayed Release (Dr/Ec) 500 mg PO DAILY@07 divalproex 500 mg Tablet,Delayed Release (Dr/Ec) 1,000 mg PO DAILY@20 tamsulosin [Flomax] 0.4 mg Capsule 0.4 mg PO DAILY@18 latanoprost 0.005 % Drops 1 drp OPHTHALMIC (EYE) DAILY@07 Rx Instructions: one drop in both eyes meloxicam 7.5 mg Tablet 7.5 mg PO DAILY@07 pantoprazole [Protonix] 40 mg Tablet,Delayed Release (Dr/Ec) 40 mg PO DAILY@07 lisinopril 10 mg Tablet 10 mg PO DAILY@07 fluticasone propionate 50 mcg/actuation [place],Suspension 2 spray INTRANASAL DAILY@07 Rx Instructions: two sprays each nostril famotidine [Pepcid] 20 mg Tablet 20 mg PO BID@08,20 lithium carbonate 450 mg Tablet Extended Release 450 mg PO DAILY Qty: 30 0RF gabapentin 600 mg Tablet 600 mg PO TID@08,14,20 haloperidol 5 mg Tablet 10 mg PO BID@08,20 Rx Instructions: dced on 12/08/20 per pts mar Detrol 1 mg Tablet 1 mg PO BID@08,20 Zyprexa 10 mg Tablet 10 mg PO Q6H PRN (Reason: Agitation) Rx Instructions: dced per mar on 12/08/20 levothyroxine 25 mcg Tablet 25 mcg PO DAILY@07 Benadryl 25 mg Capsule 50 mg PO BID@08,20 Nitrostat 0.4 mg Tablet, Sublingual 0.4 mg SUBLINGUAL Q5M PRN (Reason: Chest Pain) docusate sodium 100 mg Capsule 100 mg PO DAILY PRN (Reason: Constipation) haloperidol decanoate 50 mg/mL Solution 100 mg IM .ONCE EVERY 28 DAYS Rx Instructions: start on 12/13/20 per pts mar Restasis 0.05 % Dropperette 1 drp OPHTHALMIC (EYE) Q12H Rx Instructions: both eyes @08:00,20:00 Zyprexa 10 mg Recon Soln 10 mg IM Q24H PRN (Reason: Agitation) Vitamin D3 25 mcg (1,000 unit) Tablet 25 mcg PO DAILY@07 Janumet 50-500 mg Tablet 1 tab PO BID Discharge Orders: Discharge ED (Routine); Ordered 01/16/23 Ordered By: Ivan Rodríguez Patient Instructions: Opioid Safety, Pain Management Activity Restrictions/Additional Instructions: Please follow-up with your family practice physician in the next 7 to 10 days. You may benefit from further evaluation testing such as referral to a journeyman electrician pv installer and/or cardiac stress test. If this pain gets worse or changes feel free to come back to the ER for further evaluation. Coding Level of Care Code ED Dog Handler for [facility]
[2023-01-15 21:58] LABS: Basophils % 0.4 %; Eosinophils # 0.4 10^3/uL (0.0-0.8); Eosinophils % 4.2 %; Hematocrit 44.4 % (42.0-52.0); Hemoglobin 13.3 g/dL (11.7-16.6); Lymphocytes # 2.4 10^3/uL (0.8-4.8); Lymphocytes % 29.3 %; Mean Corpuscular Hemoglobin 26.3 pg (28.0-34.0); Mean Corpuscular Volume 87.7 fl (80-94); Mean Platelet Volume 10.8 fL (7.4-10.4); Monocytes # 0.7 10^3/uL (0.2-0.9); Monocytes % 7.8 %; Neutrophils # 4.77 10^3/uL (1.8-7.7); Neutrophils % 57.2 %; Nucleated Red Blood Cells % 0 %; Platelet Count 246 10^3/cmm (130-400); Red Blood Count 5.06 10^6/uL (4.1-5.3); Red Cell Distribution Width 15.9 % (12.1-15.1); White Blood Count 8.3 10^3/uL (4.0-10.0)
[2023-01-15 22:00] VITALS: BP 134/88; PULSE 112; RESP 22; O2SAT 93
[2023-01-15] MEDS: ketorolac 30 mg/mL INJ IM (22:02)
[2023-01-15 22:23] LABS: Add Urine Microscopic? YES; Bacteria Urine TRACE /hpf; Bilirubin Urine Neg (Negative); Blood Urine Neg (Negative); Glucose Urine UA 4+ (Normal); Ketones Urine 1+ (Negative); Leukocyte Esterase Urine Negative (Negative); Nitrate Urine Negative (Negative); Protein Urine Trace (Negative); Specific Gravity, Urine 1.015 (1.005-1.030); Squamous Epithelial Cell Urine 0-4 /hpf (0-5); Urine Appearance Clear (CLEAR); Urine Color Yellow (Yellow); Urobilinogen Urine Neg (Negative); pH Urine 8 (5-7)
[2023-01-15 22:24] LABS: Add Urine Culture? No; Sulfosalicylic Acid Urine Negative (Negative)
[2023-01-15 22:27] LABS: Troponin(5th) Baseline 18 ng/L (0-15)
[2023-01-15 22:37] LABS: Alanine Aminotransferase 20 U/L (0-41); Albumin Level 3.9 g/dL (3.5-5.2); Alkaline Phosphatase 127 U/L (40-130); Anion Gap 14.8 (5-19); Aspartate Amino Transferase 17 U/L (0-40); Blood Urea Nitrogen 17 mg/dL (6-20); Calcium 9.1 mg/dL (8.5-10.5); Carbon Dioxide 25 mmol/L (22-29); Chloride 99 mmol/L (98-107); Globulin 3.7 g/dL (1.3-4.6); Glomerular Filtration Rate 117.1 mL/min (90-130); Glucose 268 mg/dL (65-115); NT Pro B Type Natriuretic Pept 36 pg/mL (0-125); Osmolality Calculated 289 mOsm/kg (285-295); Potassium 4.8 mmol/L (3.5-5.1); Sodium 134 mmol/L (136-145); Total Bilirubin 0.3 mg/dL (0.15-1.2); Total Protein 7.6 g/dL (6.6-8.7)
[2023-01-15 23:00] VITALS: BP 127/100; PULSE 91; RESP 22; O2SAT 91
--- NOTE | 2023-01-15 23:31 | ECG_ITS ---
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 Measurements Intervals [place] Rate: 93 P: 60 [place]: 125 QRS: 45 QRSD: 98 T: 60 QT: 348 QTc: 434 Interpretive Statements SINUS RHYTHM Compared to ECG 12/09/2020 08:42:50 T-wave abnormality no longer present Electronically Signed On 01-16-2023 13:02:04 CDT by Gabby Lunsford M.D. [id number]
[2023-01-16 00:12] VITALS: BP 119/69; PULSE 91; RESP 16; O2SAT 92
--- NOTE | 2023-01-19 06:14 | DCPLANNER ---
manager real estate was triggered to call patient due to no primary care physician - patient does not live in the area.
== END 2023-01-16 07:10 | disposition home or self-care (01) ==
PROVIDERS: Emergency Provider Emergency Medicine
DX: R07.2 Precordial pain (principal); I10 Essential (primary) hypertension; R00.0 Tachycardia, unspecified
CPT/HCPCS: 36415; 71045; 80053; 81001; 83880; 84484; 85025; 93005; 96372; 99285; J1885

== ENCOUNTER 2023-11-17 13:32 | Emergency (ER) | payer MEDICAID, SELFPAY ==
[2023-11-17 13:36] VITALS: BP 155/91; PULSE 96; RESP 18; TEMP 36.7; O2SAT 92
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
--- NOTE | 2023-11-17 14:16 | PC.PHAR ---
PT IS FROM [facility]. 11/17/23
[2023-11-17 14:31] LABS: Basophils % 0.5 %; Eosinophils # 0.3 10^3/uL (0.0-0.8); Eosinophils % 3.4 %; Lymphocytes # 2.7 10^3/uL (0.8-4.8); Lymphocytes % 32.7 %; Mean Corpuscular HGB Conc 30.3 g/dL (30-55); Mean Corpuscular Hemoglobin 27.1 pg (27-33); Mean Corpuscular Volume 89.6 fl (82-101); Mean Platelet Volume 10.2 fL (7.4-10.4); Monocytes # 0.8 10^3/uL (0.2-0.9); Neutrophils # 4.35 10^3/uL (1.8-7.7); Neutrophils % 52.3 %; Nucleated Red Blood Cells % 0 %; Platelet Count 244 10^3/cmm (157-399); Red Blood Count 4.24 10^6/uL (3.85-5.65); Red Cell Distribution Width 16.6 % (12.1-15.1); White Blood Count 8.31 10^3/uL (3.29-11.43)
[2023-11-17 14:53] LABS: Alanine Aminotransferase 12 U/L (0-41); Albumin Level 3.6 g/dL (3.5-5.2); Alkaline Phosphatase 101 U/L (40-130); Anion Gap 16.4 (5-19); Aspartate Amino Transferase 13 U/L (0-40); Blood Urea Nitrogen 14 mg/dL (6-20); Calcium 8.7 mg/dL (8.5-10.5); Carbon Dioxide 22 mmol/L (22-29); Chloride 100 mmol/L (98-107); Globulin 3.5 g/dL (1.3-4.6); Glucose 81 mg/dL (65-115); Osmolality Calculated 278 mOsm/kg (285-295); Potassium 4.4 mmol/L (3.5-5.1); Sodium 134 mmol/L (136-145); Total Bilirubin 0.4 mg/dL (0.15-1.2); Total Protein 7.1 g/dL (6.6-8.7)
[2023-11-17 14:54] LABS: Valproic Acid Level 79.8 ug/mL (50-100)
[2023-11-17 14:56] LABS: Acetaminophen < 5.0 ug/mL (10-30); Alcohol Level < 10 mg/dL (0-10); Salicylate < 0.3 mg/dL (3-10)
[2023-11-17 15:09] LABS: Lithium 0.1 mmol/L (0.6-1.2)
--- NOTE | 2023-11-17 15:10 | PC.PHAR ---
PT HAS 4 MEDICATIONS ON OCT BUT NOT ON TAR: GLUCAGON EMERGENCY KIT, FIASP FLEX TOUCH, OZEMPIC, AND TRESIBA. ADDED TO PT LIST WITH DOSAGE. PT ALSO HAD LISINOPRIL 40 MG AND LISINOPRIL 20MG ON OCT. LISINOPRIL 20MG (GIVEN ON FRIDAY). PER DB 40MG HAS BEEN DISCONTINUED (IT WAS GIVEN THIS MORNING).
[2023-11-17 15:53] LABS: Add Urine Microscopic? NO; Charge for UA Resulting for Rev
[2023-11-17 15:57] LABS: Bilirubin Urine 1+ (Negative); Blood Urine Neg (Negative); Glucose Urine UA Norm (Normal); Ketones Urine 1+ (Negative); Leukocyte Esterase Urine Negative (Negative); Nitrate Urine Negative (Negative); Protein Urine Neg (Negative); Urine Appearance Clear (CLEAR); Urine Color Dark Yellow (Yellow); Urobilinogen Urine Neg (Negative); pH Urine 5 (5-7)
[2023-11-17 16:07] LABS: Amphetamines Screen Urine Negative (Negative); Barbiturates Screen Urine Negative (Negative); Benzodiazepines Screen Urine Positive (Negative); Cocaine Screen Urine Negative (Negative); Opiate Screen Urine Negative (Negative); PCP Screen Urine Negative (Negative); THC Screen Urine Negative (Negative)
--- NOTE | 2023-11-17 16:20 | PC.NURSE ---
report called back to [place] nurse. transport on the way
== END 2023-11-17 17:32 | disposition home or self-care (01) ==
PROVIDERS: Emergency Medicine; Emergency Provider Physician Assistant
DX: F20.0 Paranoid schizophrenia (principal); F43.25 Adjustment disorder with mixed disturbance of emotions and conduct; Z79.82 Long term (current) use of aspirin; Z79.84 Long term (current) use of oral hypoglycemic drugs; Z79.4 Long term (current) use of insulin; Z79.85 Long-term (current) use of injectable non-insulin antidiabetic drugs
CPT/HCPCS: 36415; 80053; 80164; 80178; 80306; 80307; 81003; 85025; 99283

== ENCOUNTER 2023-11-27 00:03 | Emergency (ER) | payer MEDICAID, SELFPAY ==
[2023-11-27 00:04] VITALS: BP 164/99; PULSE 88; RESP 22; TEMP 36.4; O2SAT 92; BMI 59.5
--- NOTE | 2023-11-27 00:06 | XRR_ITS ---
PROCEDURE INFORMATION: Exam: XR Chest Exam date and time: 11/27/2023 12:18 AM Age: 58 years old Clinical indication: Other: Med clear TECHNIQUE: Imaging protocol: Radiologic exam of the chest. Views: 1 view. COMPARISON: CR XR chest 1V portable [id number] 01/15/2023 9:35 PM FINDINGS: Lungs: Unremarkable. No consolidation. Pleural spaces: Unremarkable. No pleural effusion. No pneumothorax. Heart/Mediastinum: Unremarkable. No cardiomegaly. Bones/joints: Unremarkable. XR/XR chest 1V portable [id number] IMPRESSION: No acute findings.
--- NOTE | 2023-11-27 00:10 | W.ED.PSYCHS ---
Documented by User: TANVIR Mendez 11/27/23 13:12 HPI - Psych General: Chief Complaint: Psychiatric Symptoms Stated Complaint: MHE Time Seen by Provider: 11/27/23 00:05 History of Present Illness: 58-year-old male patient resides at [facility] in [facility] comes in today for complaints of disruptive behavior. The DOM called and relayed that patient has been very disruptive and aggressive towards staff. Patient is also been going into other patient rooms and going through their stuff. Patient has also become upset and had pulled a sink off the wall. Patient states that people have been talking about him and stealing his stuff. Patient seems paranoid when discussing this to me. Patient does have a history of schizophrenia, bipolar disorder, and adjustment disorder. Review of Systems General: Reports: 10 or more systems reviewed and unremarkable except in HPI and below Psych: Reports: paranoia Physical Exam Const: COMMON NORMALS: alert HENMT: COMMON NORMALS: normocephalic HEAD & SCALP: normocephalic Neck/C-Spine: COMMON NORMALS: no lymphadenopathy Resp: COMMON NORMALS: normal respiratory effort and clear to auscultation bilaterally AUSCULTATION: clear to auscultation bilaterally Cardio: COMMON NORMALS: regular rate and regular rhythm RATE: regular rate RHYTHM: regular rhythm Back/Pelvis: COMMON NORMALS: thoracic and lumbar spine normal to inspection Extremity: COMMON NORMALS: full ROM Neuro: SENSORIUM/ORIENTATION: Yes alert Skin: COMMON NORMALS: turgor normal GENERAL SKIN EXAM: turgor normal Course Vital Signs: Vital signs: Vital Signs Temperature 97.8 F 11/27/23 05:41 Pulse Rate 82 11/27/23 08:19 Respiratory Rate 19 H 11/27/23 08:19 Blood Pressure 113/57 11/27/23 08:19 Pulse Oximetry 91 11/27/23 08:19 Oxygen Delivery Me thod Room Air 11/27/23 08:19 MDM - Psych Medical Decision Making Patient was brought into the emergency department for concerns of increased paranoia, agitation towards residential staff, and an episode of pulling a syncopal wall. [facility] staff reported that patient had been going into other patient's rooms and going through their stuff which has caused altercations to occur between him and another patient. This patient states that he feels that people are talking about him and taking his stuff. Physical exam is unremarkable. Patient is morbidly obese. Skin is warm and dry color is pink lungs are clear to auscultation. Vital signs are normal except for some elevated blood pressure 164/99. Differential diagnosis includes but not limited to schizophrenia, psychosis, bipolar disorder, adjustment disorder. 0035, reviewed patient with Dr. Wallace, psychiatrist on-call, he wanted to review patient's record to decide if his cognitive impairment would impede helping the patient with his schizophrenia and symptoms he was having at the residential. Lab Data 11/27/23 00:33 11/27/23 00:33 Radiology Impressions Chest X-Ray 11/27/23 00:06 IMPRESSION: No acute findings. Laboratory Results WBC 8.24 10^3/uL (3.29-11.43) 11/27/23 00:33 RBC 4.06 10^6/uL (3.85-5.65) 11/27/23 00:33 Hgb 10.80 g/dL (11.27-16.99) L 11/27/23 00:33 Hct 35.5 % (37-53) L 11/27/23 00:33 MCV 87.4 fl (82-101) 11/27/23 00:33 MCH 26.6 pg (27-33) L 11/27/23 00:33 MCHC 30.4 g/dL (30-55) 11/27/23 00:33 RDW 16.4 % (12.1-15.1) H 11/27/23 00:33 Plt Count 282 10^3/cmm (157-399) 11/27/23 00: MPV 9.9 fL (7.4-10.4) 11/27/23 00: Neut % (Auto) 61.7 % 11/27/23 00:33 Lymph % (Auto) 23.9 % 11/27/23 00:33 [place] % (Auto) 9.0 % 11/27/23 00:33 Eos % (Auto) 3.9 % 11/27/23 00:33 Baso % (Auto) 0.5 % 11/27/23 00:33 Neut # (Auto) 5.09 10^3/uL (1.8-7.7) 11/27/23 00:33 Lymph # (Auto) 2.0 10^3/uL (0.8-4.8) 11/27/23 00:33 Boyle # (Auto) 0.7 10^3/uL (0.2-0.9) 11/27/23 00:33 Eos # (Auto) 0.3 10^3/uL (0.0-0.8) 11/27/23 00: Baso # (Auto) 0.0 10^3/uL (0.0-0.1) 11/27/23 00: Nucleated RBC % (auto) 0 % 11/27/23 00: Nucleated RBCs # 0.0 /100WBC 11/27/23 00:33 Sodium 137 mmol/L (136-145) 11/27/23 00: Potassium 4.9 mmol/L (3.5-5.1) 11/27/23 00: Chloride 101 mmol/L (98-107) 11/27/23 00: Carbon Dioxide 26 mmol/L (22-29) 11/27/23 00: Anion Gap 14.9 (5-19) 11/27/23 00: BUN 14 mg/dL (6-20) 11/27/23 00: Creatinine 0.8 mg/dL (0.7-1.2) 11/27/23 00: GFR Calculation 100.0 mL/min (90-130) 11/27/23 00: Glucose 98 mg/dL (65-115) 11/27/23 00: Calculated Osmolality 284 mOsm/kg (285-295) L 11/27/23 00: Calcium 9.1 mg/dL (8.5-10.5) 11/27/23 00: Total Bilirubin 0.3 mg/dL (0.15-1.2) 11/27/23 00: AST 13 U/L (0-40) 11/27/23 00: ALT 11 U/L (0-41) 11/27/23 00: Alkaline Phosphatase 108 U/L (40-130) 11/27/23 00: Total Protein 7.2 g/dL (6.6-8.7) 11/27/23 00: Albumin 3.7 g/dL (3.5-5.2) 11/27/23 00:33 Globulin 3.5 g/dL (1.3-4.6) 11/27/23 00:33 TSH 4.60 uIU/mL (0.27-4.20) H 11/27/23 00:33 Urine Color Yellow (Yellow) 11/27/23 01:55 Urine Appearance Clear (CLEAR) 11/27/23 01:55 Urine pH 6 (5-7) 11/27/23 01:55 Ur Specific [place] 1.010 (1.005-1.030) 11/27/23 01:55 Urine Protein Neg (Negative) 11/27/23 01:55 Urine Glucose (UA) Norm (Normal) 11/27/23 01:55 Urine Ketones Negative (Negative) 11/27/23 01:55 Urine Blood Neg (Negative) 11/27/23 01:55 Urine Nitrate Negative (Negative) 11/27/23 01:55 Urine Bilirubin Neg (Negative) 11/27/23 01:55 Urine Urobilinogen Neg mg/dL (Negative) 11/27/23 01:55 Ur Leukocyte Esterase 1+ (Negative) H 11/27/23 01:55 Urine RBC 5-10 /hpf (0-2) H 11/27/23 01:55 Urine WBC 0-4 /hpf (0-5) H 11/27/23 01:55 Ur Squamous Epith Cells 0-4 /hpf (0-5) H 11/27/23 01:55 Amorphous Sediment Not Reportable 11/27/23 01:55 Urine Bacteria 1+ /hpf (NONE) H 11/27/23 01:55 Urine Mucus 1+ /hpf 11/27/23 01:55 Salicylates < 0.3 mg/dL (3-10) L 11/27/23 00:33 Urine Opiates Screen Negative ng/mL (Negative) 11/27/23 01:55 Acetaminophen < 5.0 ug/mL (10-30) L 11/27/23 00:33 Ur Barbiturates Screen Negative ng/mL (Negative) 11/27/23 01:55 Valproic Acid 50.8 ug/mL (50-100) 11/27/23 00:33 Ur Phencyclidine Scrn Negative ng/mL (Negative) 11/27/23 01:55 Ur Amphetamines Screen Negative ng/mL (Negative) 11/27/23 01:55 U Benzodiazepines Scrn Positive ng/mL (Negative) H 11/27/23 01:55 Urine Cocaine Screen Negative ng/mL (Negative) 11/27/23 01:55 U Marijuana (THC) Screen Negative ng/mL (Negative) 11/27/23 01:55 Ethyl Alcohol < 10 mg/dL (0-10) 11/27/23 00:33 Influenza Type A Ag negative (Negative) 11/27/23 02:20 Influenza Type B Ag negative (Negative) 11/27/23 02:20 RSV Antigen Negative (Negative) 11/27/23 02:20 SARS-CoV-2 Ag (Rapid) negative (Negative) 11/27/23 02:20 Discharge Plan Discharge Patient Disposition: Xfer Psychiatric Hosp Clinical Impression: Adjustment disorder with mixed disturbance of emotions and conduct Coding Level of Care Code ED Tiler'S Assistant for [facility] Documented by User: Ivan Rodríguez DO 11/27/23 04:39 HPI - Psych General: Chief Complaint: Psychiatric Symptoms Stated Complaint: MHE Time Seen by Provider: 11/27/23 00:05 Course Vital Signs: Vital signs: Vital Signs Temperature 97.8 F 11/27/23 05:41 Pulse Rate 82 11/27/23 08:19 Respiratory Rate 19 H 11/27/23 08:19 Blood Pressure 113/57 11/27/23 08:19 Pulse Oximetry 91 11/27/23 08:19 Oxygen Delivery Me thod Room Air 11/27/23 08:19 MDM - Psych Medical Decision Making Patient was brought into the emergency department for concerns of increased paranoia, agitation towards residential staff, and an episode of pulling a syncopal wall. [facility] staff reported that patient had been going into other patient's rooms and going through their stuff which has caused altercations to occur between him and another patient. This patient states that he feels that people are talking about him and taking his stuff. Physical exam is unremarkable. Patient is morbidly obese. Skin is warm and dry color is pink lungs are clear to auscultation. Vital signs are normal except for some elevated blood pressure 164/99. Differential diagnosis includes but not limited to schizophrenia, psychosis, bipolar disorder, adjustment disorder. 0035, reviewed patient with Dr. Wallace, psychiatrist on-call, he wanted to review patient's record to decide if his cognitive impairment would impede helping the patient with his schizophrenia and symptoms he was having at the residential. Information packet sent to [place], accepted by Dr. Grimm Lab Data 11/27/23 00:33 11/27/23 00:33 Radiology Impressions Chest X-Ray 11/27/23 00:06 IMPRESSION: No acute findings. Laboratory Results WBC 8.24 10^3/uL (3.29-11.43) 11/27/23 00:33 RBC 4.06 10^6/uL (3.85-5.65) 11/27/23 00:33 Hgb 10.80 g/dL (11.27-16.99) L 11/27/23 00:33 Hct 35.5 % (37-53) L 11/27/23 00:33 MCV 87.4 fl (82-101) 11/27/23 00:33 MCH 26.6 pg (27-33) L 11/27/23 00:33 MCHC 30.4 g/dL (30-55) 11/27/23 00:33 RDW 16.4 % (12.1-15.1) H 11/27/23 00:33 Plt Count 282 10^3/cmm (157-399) 11/27/23 00:33 MPV 9.9 fL (7.4-10.4) 11/27/23 00:33 Neut % (Auto) 61.7 % 11/27/23 00:33 Lymph % (Auto) 23.9 % 11/27/23 00:33 Boyle % (Auto) 9.0 % 11/27/23 00:33 Eos % (Auto) 3.9 % 11/27/23 00:33 Baso % (Auto) 0.5 % 11/27/23 00:33 Neut # (Auto) 5.09 10^3/uL (1.8-7.7) 11/27/23 00:33 Lymph # (Auto) 2.0 10^3/uL (0.8-4.8) 11/27/23 00:33 Boyle # (Auto) 0.7 10^3/uL (0.2-0.9) 11/27/23 00:33 Eos # (Auto) 0.3 10^3/uL (0.0-0.8) 11/27/23 00:33 Baso # (Auto) 0.0 10^3/uL (0.0-0.1) 11/27/23 00: Nucleated RBC % (auto) 0 % 11/27/23 00: Nucleated RBCs # 0.0 /100WBC 11/27/23 00:33 Sodium 137 mmol/L (136-145) 11/27/23 00: Potassium 4.9 mmol/L (3.5-5.1) 11/27/23 00: Chloride 101 mmol/L (98-107) 11/27/23 00: Carbon Dioxide 26 mmol/L (22-29) 11/27/23 00: Anion Gap 14.9 (5-19) 11/27/23 00: BUN 14 mg/dL (6-20) 11/27/23 00: Creatinine 0.8 mg/dL (0.7-1.2) 11/27/23 00: GFR Calculation 100.0 mL/min (90-130) 11/27/23 00: Glucose 98 mg/dL (65-115) 11/27/23 00: Calculated Osmolality 284 mOsm/kg (285-295) L 11/27/23 00: Calcium 9.1 mg/dL (8.5-10.5) 11/27/23 00: Total Bilirubin 0.3 mg/dL (0.15-1.2) 11/27/23 00: AST 13 U/L (0-40) 11/27/23 00: ALT 11 U/L (0-41) 11/27/23 00: Alkaline Phosphatase 108 U/L (40-130) 11/27/23 00: Total Protein 7.2 g/dL (6.6-8.7) 11/27/23 00: Albumin 3.7 g/dL (3.5-5.2) 11/27/23 00: Globulin 3.5 g/dL (1.3-4.6) 11/27/23 00:33 TSH 4.60 uIU/mL (0.27-4.20) H 11/27/23 00:33 Urine Color Yellow (Yellow) 11/27/23 01:55 Urine Appearance Clear (CLEAR) 11/27/23 01:55 Urine pH 6 (5-7) 11/27/23 01:55 Ur Specific [place] 1.010 (1.005-1.030) 11/27/23 01:55 Urine Protein Neg (Negative) 11/27/23 01:55 Urine Glucose (UA) Norm (Normal) 11/27/23 01:55 Urine Ketones Negative (Negative) 11/27/23 01:55 Urine Blood Neg (Negative) 11/27/23 01:55 Urine Nitrate Negative (Negative) 11/27/23 01:55 Urine Bilirubin Neg (Negative) 11/27/23 01:55 Urine Urobilinogen Neg mg/dL (Negative) 11/27/23 01:55 Ur Leukocyte Esterase 1+ (Negative) H 11/27/23 01:55 Urine RBC 5-10 /hpf (0-2) H 11/27/23 01:55 Urine WBC 0-4 /hpf (0-5) H 11/27/23 01:55 Ur Squamous Epith Cells 0-4 /hpf (0-5) H 11/27/23 01:55 Amorphous Sediment Not Reportable 11/27/23 01:55 Urine Bacteria 1+ /hpf (NONE) H 11/27/23 01:55 Urine Mucus 1+ /hpf 11/27/23 01:55 Salicylates < 0.3 mg/dL (3-10) L 11/27/23 00:33 Urine Opiates Screen Negative ng/mL (Negative) 11/27/23 01:55 Acetaminophen < 5.0 ug/mL (10-30) L 11/27/23 00:33 Ur Barbiturates Screen Negative ng/mL (Negative) 11/27/23 01:55 Valproic Acid 50.8 ug/mL (50-100) 11/27/23 00:33 Ur Phencyclidine Scrn Negative ng/mL (Negative) 11/27/23 01:55 Ur Amphetamines Screen Negative ng/mL (Negative) 11/27/23 01:55 U Benzodiazepines Scrn Positive ng/mL (Negative) H 11/27/23 01:55 Urine Cocaine Screen Negative ng/mL (Negative) 11/27/23 01:55 U Marijuana (THC) Screen Negative ng/mL (Negative) 11/27/23 01:55 Ethyl Alcohol < 10 mg/dL (0-10) 11/27/23 00:33 Influenza Type A Ag negative (Negative) 11/27/23 02:20 Influenza Type B Ag negative (Negative) 11/27/23 02:20 RSV Antigen Negative (Negative) 11/27/23 02:20 SARS-CoV-2 Ag (Rapid) negative (Negative) 11/27/23 02:20 All radiology interpretation(s) finalized by discharge Discharge Plan Discharge Patient Disposition: Xfer Psychiatric Hosp Clinical Impression: Adjustment disorder with mixed disturbance of emotions and conduct Coding Level of Care Code ED Tiler'S Assistant for [facility]
[2023-11-27 00:39] LABS: Basophils % 0.5 %; Eosinophils # 0.3 10^3/uL (0.0-0.8); Eosinophils % 3.9 %; Hematocrit 35.5 % (37-53); Lymphocytes % 23.9 %; Mean Corpuscular HGB Conc 30.4 g/dL (30-55); Mean Corpuscular Hemoglobin 26.6 pg (27-33); Mean Corpuscular Volume 87.4 fl (82-101); Mean Platelet Volume 9.9 fL (7.4-10.4); Monocytes # 0.7 10^3/uL (0.2-0.9); Neutrophils # 5.09 10^3/uL (1.8-7.7); Neutrophils % 61.7 %; Nucleated Red Blood Cells % 0 %; Platelet Count 282 10^3/cmm (157-399); Red Blood Count 4.06 10^6/uL (3.85-5.65); Red Cell Distribution Width 16.4 % (12.1-15.1); White Blood Count 8.24 10^3/uL (3.29-11.43)
[2023-11-27 01:04] LABS: Valproic Acid Level 50.8 ug/mL (50-100)
[2023-11-27 01:14] LABS: Alanine Aminotransferase 11 U/L (0-41); Albumin Level 3.7 g/dL (3.5-5.2); Alkaline Phosphatase 108 U/L (40-130); Blood Urea Nitrogen 14 mg/dL (6-20); Calcium 9.1 mg/dL (8.5-10.5); Carbon Dioxide 26 mmol/L (22-29); Chloride 101 mmol/L (98-107); Creatinine Clr Calc Pharmacy 148.5377; Globulin 3.5 g/dL (1.3-4.6); Glucose 98 mg/dL (65-115); Osmolality Calculated 284 mOsm/kg (285-295); Sodium 137 mmol/L (136-145); Total Bilirubin 0.3 mg/dL (0.15-1.2); Total Protein 7.2 g/dL (6.6-8.7)
[2023-11-27 01:15] LABS: Acetaminophen < 5.0 ug/mL (10-30); Alcohol Level < 10 mg/dL (0-10); Salicylate < 0.3 mg/dL (3-10)
[2023-11-27 01:16] LABS: Anion Gap 14.9 (5-19); Aspartate Amino Transferase 13 U/L (0-40); Potassium 4.9 mmol/L (3.5-5.1)
--- NOTE | 2023-11-27 02:25 | ECG_ITS ---
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 Measurements Intervals [place] Rate: 86 P: 56 RI: 133 QRS: 31 QRSD: 94 T: 36 QT: 356 QTc: 427 Interpretive Statements SINUS RHYTHM NONSPECIFIC ST & T-WAVE ABNORMALITY Compared to ECG 01/15/2023 23:33:19 T-wave abnormality now present Electronically Signed On 11-27-2023 15:08:47 CDT by Layton Jerry M.D. [id number]
[2023-11-27 02:29] LABS: Amphetamines Screen Urine Negative (Negative); Barbiturates Screen Urine Negative (Negative); Benzodiazepines Screen Urine Positive (Negative); Cocaine Screen Urine Negative (Negative); Opiate Screen Urine Negative (Negative); PCP Screen Urine Negative (Negative); THC Screen Urine Negative (Negative)
[2023-11-27] MEDS: acetaminophen 500 mg Tablet 1000 MG PO (02:33)
[2023-11-27 02:36] LABS: Add Urine Microscopic? YES; Bilirubin Urine Neg (Negative); Blood Urine Neg (Negative); Glucose Urine UA Norm (Normal); Ketones Urine Negative (Negative); Leukocyte Esterase Urine 1+ (Negative); Nitrate Urine Negative (Negative); Protein Urine Neg (Negative); Squamous Epithelial Cell Urine 0-4 /hpf (0-5); Urine Appearance Clear (CLEAR); Urine Color Yellow (Yellow); Urobilinogen Urine Neg (Negative); WBC Urine 0-4 /hpf (0-5); pH Urine 6 (5-7)
[2023-11-27 02:37] LABS: Add Urine Culture? No; Bacteria Urine 1+ /hpf; Mucus Urine 1+ /hpf
[2023-11-27 02:49] LABS: SARS Covid-2 Antigen negative (Negative)
[2023-11-27 02:59] LABS: Influenza A by IFA negative (Negative); Influenza B by IFA negative (Negative)
[2023-11-27 03:04] LABS: RSV Transfer Patient (ED) Negative (Negative)
[2023-11-27 03:39] VITALS: PULSE 98; RESP 20; O2SAT 94
[2023-11-27 05:41] VITALS: BP 139/80; PULSE 81; RESP 18; TEMP 36.6; O2SAT 92
--- NOTE | 2023-11-27 06:07 | PC.NURSE ---
I tried contacting Shirlene hilario first, phone was disconnected. Contacted Jose hilario, he gave consent to transfer to [place]. Rachel and Maribeth witnessed consent.
[2023-11-27 08:19] VITALS: BP 113/57; PULSE 82; RESP 19; O2SAT 91
== END 2023-11-27 08:59 ==
PROVIDERS: Emergency Medicine; Emergency Provider Nurse Practitioner Family
DX: F43.25 Adjustment disorder with mixed disturbance of emotions and conduct (principal); Z11.52 Encounter for screening for COVID-19
CPT/HCPCS: 36415; 71045; 80053; 80164; 80306; 80307; 81001; 84443; 85025; 87426; 87804; 87899; 93005; 99285

== ENCOUNTER 2023-12-09 14:25 | Emergency (ER) | payer MEDICARE, MEDICAID, SELFPAY ==
[2023-12-09 14:31] VITALS: BP 142/68; PULSE 88; TEMP 36.5; O2SAT 92; BMI 54.5
--- NOTE | 2023-12-09 14:31 | XRR_ITS ---
PROCEDURE INFORMATION: Exam: XR Chest Exam date and time: 12/09/2023 2:36 PM Age: 58 years old Clinical indication: Cough and dyspnea and shortness of breath; Additional info: Dyspnea/cough TECHNIQUE: Imaging protocol: Radiologic exam of the chest. Views: 1 view. COMPARISON: CR (CHEST, ) 11/27/2023 12:18 AM FINDINGS: Lungs: Unremarkable. No consolidation. Pleural spaces: Unremarkable. No pleural effusion. No pneumothorax. Heart/Mediastinum: Unremarkable. No cardiomegaly. Bones/joints: Unremarkable. XR/XR chest 1V portable [id number] IMPRESSION: No acute findings.
--- NOTE | 2023-12-09 14:31 | ECG_ITS ---
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 Measurements Intervals [place] Rate: 88 P: 53 MT: 127 QRS: 27 QRSD: 102 T: 52 QT: 374 QTc: 453 Interpretive Statements SINUS RHYTHM NONSPECIFIC T-WAVE ABNORMALITY Compared to ECG 11/27/2023 02:25:18 No significant changes Electronically Signed On 12-09-2023 22:58:58 CDT by Glenroy Aquino M.D. [id number]
[2023-12-09 14:41] VITALS: BP 142/68; PULSE 87; RESP 21; O2SAT 93
[2023-12-09 14:52] LABS: Basophils % 0.4 %; Eosinophils # 0.4 10^3/uL (0.0-0.8); Eosinophils % 4.2 %; Hematocrit 35.3 % (37-53); Lymphocytes # 2.6 10^3/uL (0.8-4.8); Lymphocytes % 25.1 %; Mean Corpuscular HGB Conc 31.2 g/dL (30-55); Mean Corpuscular Hemoglobin 27.2 pg (27-33); Mean Corpuscular Volume 87.4 fl (82-101); Mean Platelet Volume 10.4 fL (7.4-10.4); Monocytes # 0.7 10^3/uL (0.2-0.9); Monocytes % 6.8 %; Neutrophils # 6.52 10^3/uL (1.8-7.7); Neutrophils % 62.8 %; Nucleated Red Blood Cells % 0 %; Platelet Count 269 10^3/cmm (157-399); Red Blood Count 4.04 10^6/uL (3.85-5.65); Red Cell Distribution Width 16.4 % (12.1-15.1); White Blood Count 10.36 10^3/uL (3.29-11.43)
[2023-12-09 15:11] LABS: Alanine Aminotransferase 11 U/L (0-41); Albumin Level 3.6 g/dL (3.5-5.2); Alkaline Phosphatase 117 U/L (40-130); Anion Gap 14.4 (5-19); Aspartate Amino Transferase 11 U/L (0-40); Blood Urea Nitrogen 19 mg/dL (6-20); Calcium 8.3 mg/dL (8.5-10.5); Carbon Dioxide 25 mmol/L (22-29); Chloride 102 mmol/L (98-107); Creatinine Clr Calc Pharmacy 149.9167; Globulin 3.7 g/dL (1.3-4.6); Glucose 95 mg/dL (65-115); Osmolality Calculated 286 mOsm/kg (285-295); Potassium 4.4 mmol/L (3.5-5.1); Sodium 137 mmol/L (136-145); Total Bilirubin 0.3 mg/dL (0.15-1.2); Total Protein 7.3 g/dL (6.6-8.7); Troponin(5th) Baseline 10 ng/L (0-15)
--- NOTE | 2023-12-09 15:24 | ED_ITS ---
HPI - General Adult 2 General: Chief complaint: General Medical Stated complaint: SOB Time Seen by Provider: 12/09/23 14:29 Source: patient Mode of arrival: ambulatory History of Present Illness: 58-year-old male who presents to the [facility] room with complaints of being unresponsive at the senior living was brought in by EMS. skilled nursing staff reports he was at 71% on room air they put him on 3 L improved to 95%. On arrival here patient is alert. He is able to tell me that they woke him up from a nap but to give him a snack and a difficult time waking him up. On room air at this time he is in the mid 90s. He has some mild abdominal discomfort but no chest pain. He is reporting some swelling in his legs. Exacerbating factors: none Associated symptoms: Deny chest pain, confusion, cough, diaphoresis, decreased appetite, dyspnea, fevers/chills, headache(s), malaise, nausea, rash, palpitations, seizures, short of breath, syncope, vomiting or weakness Review of Systems 2 Const: Denies: fever(s), chills, malaise or diaphoresis Card: Denies: chest pain, palpitations or syncope Resp: Denies: dyspnea GI: Denies: abdominal pain, nausea or vomiting : Denies: dysuria, urinary frequency or urinary urgency Musc: Denies: neck pain or back pain Skin/Breast: Denies: rash Neuro: Denies: headache(s) or confusion PFSH ED 2 PFSH: Medical History (Updated 12/09/23 @ 16:35 by Ortiz Love DO) Adjustment disorder with mixed disturbance of emotions and conduct Schizophrenia Bipolar disorder Physical Exam 2 Const: GENERAL APPEARANCE: cooperative and comfortable NUTRITIONAL APPEARANCE: obese morbidly obese ORIENTATION/CONSCIOUSNESS: Yes awake, Yes oriented to person, Yes oriented to place and Yes oriented to time HENMT: COMMON NORMALS: normocephalic, atraumatic and hearing grossly normal bilaterally HEAD & SCALP: normocephalic and atraumatic Resp: COMMON NORMALS: normal respiratory effort, No retractions, No use of accessory muscles and clear to auscultation bilaterally AUSCULTATION: clear to auscultation bilaterally Cardio: COMMON NORMALS: regular rate, regular rhythm and No murmurs present (Cardio) RATE: regular rate RHYTHM: regular rhythm GI: COMMON NORMALS: Soft to palpation and No hepatosplenomegaly present A USCULTATION: Yes normoactive bowel sounds PALPATION: Yes Soft to palpation, No Tenderness to palpation present (GI), No Guarding due to palpation present (GI) and Yes No hepatosplenomegaly present Extremity: COMMON NORMALS: normal to inspection, capillary refill normal, no clubbing, cyanosis or edema, no calf tenderness and no pedal edema Neuro: SENSORIUM/ORIENTATION: Yes oriented to person, Yes oriented to place and Yes oriented to time Skin: COMMON NORMALS: no rashes or lesions noted GENERAL SKIN EXAM: no rashes or lesions noted Course 2 Vital Signs: Vital signs: Vital Signs Temperature 97.7 F 12/09/23 14:31 Pulse Rate 87 12/09/23 14:41 Respiratory Rate 21 H 12/09/23 14:41 Blood Pressure 142/68 12/09/23 14:41 Pulse Oximetry 93 12/09/23 14:41 Oxygen Delivery Me thod Room Air 12/09/23 14:41 MDM - General Adult Medical Decision Making Patient reportedly found short of breath and hypoxic but EMS reported that his sat was normal when they arrived he has been normal since he is arrived here he seems to be at his baseline laboratory tests are unremarkable for any significant exacerbations or abnormalities. He does not have a DVT on venous duplex will discharge patient back to the senior living continue routine cares and no changes. Lab Data 12/09/23 14:44 12/09/23 14:44 Radiology Impressions Chest X-Ray 12/09/23 14:31 IMPRESSION: No acute findings. Venous Duplex 12/09/23 15:33 IMPRESSION: No evidence of deep vein thrombosis. Laboratory Results WBC 10.36 10^3/uL (3.29-11.43) 12/09/23 14:44 RBC 4.04 10^6/uL (3.85-5.65) 12/09/23 14:44 Hgb 11.00 g/dL (11.27-16.99) L 12/09/23 14:44 Hct 35.3 % (37-53) L 12/09/23 14:44 MCV 87.4 fl (82-101) 12/09/23 14:44 MCH 27.2 pg (27-33) 12/09/23 14:44 MCHC 31.2 g/dL (30-55) 12/09/23 14:44 RDW 16.4 % (12.1-15.1) H 12/09/23 14:44 Plt Count 269 10^3/cmm (157-399) 12/09/23 14:44 MPV 10.4 fL (7.4-10.4) 12/09/23 14:44 Neut % (Auto) 62.8 % 12/09/23 14:44 Lymph % (Auto) 25.1 % 12/09/23 14:44 [place] % (Auto) 6.8 % 12/09/23 14:44 Eos % (Auto) 4.2 % 12/09/23 14:44 Baso % (Auto) 0.4 % 12/09/23 14:44 Neut # (Auto) 6.52 10^3/uL (1.8-7.7) 12/09/23 14:44 Lymph # (Auto) 2.6 10^3/uL (0.8-4.8) 12/09/23 14:44 [place] # (Auto) 0.7 10^3/uL (0.2-0.9) 12/09/23 14:44 Eos # (Auto) 0.4 10^3/uL (0.0-0.8) 12/09/23 14:44 Baso # (Auto) 0.0 10^3/uL (0.0-0.1) 12/09/23 14:44 Nucleated RBC % (auto) 0 % 12/09/23 14:44 Nucleated RBCs # 0.0 /100WBC 12/09/23 14:44 Sodium 137 mmol/L (136-145) 12/09/23 14:44 Potassium 4.4 mmol/L (3.5-5.1) 12/09/23 14:44 Chloride 102 mmol/L (98-107) 12/09/23 14:44 Carbon Dioxide 25 mmol/L (22-29) 12/09/23 14:44 Anion Gap 14.4 (5-19) 12/09/23 14:44 BUN 19 mg/dL (6-20) 12/09/23 14:44 Creatinine 0.8 mg/dL (0.7-1.2) 12/09/23 14:44 GFR Calculation 100.0 mL/min (90-130) 12/09/23 14:44 Glucose 95 mg/dL (65-115) 12/09/23 14:44 Calculated Osmolality 286 mOsm/kg (285-295) 12/09/23 14:44 Calcium 8.3 mg/dL (8.5-10.5) L 12/09/23 14:44 Total Bilirubin 0.3 mg/dL (0.15-1.2) 12/09/23 14:44 AST 11 U/L (0-40) 12/09/23 14:44 ALT 11 U/L (0-41) 12/09/23 14:44 Alkaline Phosphatase 117 U/L (40-130) 12/09/23 14:44 Troponin T Baseline 10 ng/L (0-15) 12/09/23 14:44 Total Protein 7.3 g/dL (6.6-8.7) 12/09/23 14:44 Albumin 3.6 g/dL (3.5-5.2) 12/09/23 14:44 Globulin 3.7 g/dL (1.3-4.6) 12/09/23 14:44 All radiology interpretation(s) finalized by discharge Discharge Plan Discharge Patient Disposition: Home Clinical Impression: Dyspnea Condition: Stable Prescriptions: No Action divalproex 500 mg Tablet,Delayed Release (Dr/Ec) 1,000 mg PO BID tamsulosin [Flomax] 0.4 mg Capsule 0.4 mg PO BEDTIME latanoprost 0.005 % Drops 1 drp OPHTHALMIC (EYE) DAILY@07 meloxicam 7.5 mg Tablet 7.5 mg PO DAILY@07 pantoprazole [Protonix] 40 mg Tablet,Delayed Release (Dr/Ec) 40 mg PO DAILY@07 fluticasone propionate 50 mcg/actuation [place],Suspension 2 spray INTRANASAL QAM famotidine [Pepcid] 20 mg Tablet 20 mg PO BID@08,20 gabapentin 600 mg Tablet 600 mg PO TID tolterodine [Detrol] 1 mg Tablet 1 mg PO BID@08,20 levothyroxine 25 mcg Tablet 25 mcg PO DAILY@07 nitroglycerin [Nitrostat] 0.4 mg Tablet, Sublingual 0.4 mg SUBLINGUAL Q5M PRN (Reason: Chest Pain) cyclosporine [Restasis] 0.05 % Dropperette 1 drp OPHTHALMIC (EYE) Q12H Rx Instructions: both eyes @08:00,20:00 fluoxetine 40 mg capsule 80 mg PO QAM clonidine HCl 0.1 mg Tablet 0.1 mg PO ONCE PRN (Reason: AGITAION) acetaminophen 325 mg Tablet 650 mg PO BID atorvastatin 20 mg tablet 20 mg PO BEDTIME cetirizine 10 mg Tablet 10 mg PO BEDTIME Senokot-S 8.6-50 mg Tablet 2 tab-cap PO QAM Aspir-81 81 mg Tablet,Delayed Release (Dr/Ec) 81 mg PO QAM amantadine HCl 100 mg capsule 100 mg PO BID risperidone 3 mg tablet 3 mg PO BID lorazepam 2 mg Tablet 2 mg PO DAILY PRN (Reason: INCREASED AGGITATION/ANXIETY) metformin 1,000 mg tablet 1,000 mg PO BID chlorpromazine 50 mg Tablet 50 mg PO TID Narcan 0.4 mg/mL Solution 2 mg SUBCUT Q2M PRN (Reason: Opioid Overdose) Rx Instructions: NTExceed 10 mg total dose/episode Dawna-[place] 200-200-20 mg/5 mL Suspension 30 ml PO QID PRN (Reason: Indigestion) Rx Instructions: administer between meals and at bedtime Glucagon Emergency Kit (human) 1 mg recon soln 1 mg IM PRN PRN (Reason: LOW BLOOD SUGAR) Tresiba FlexTouch U-100 100 unit/mL (3 mL) insulin pen 95 unit SUBCUT BEDTIME Fiasp FlexTouch U-100 Insulin 100 unit/mL (3 mL) insulin pen 35 unit SUBCUT TID Ozempic 0.25 mg or 0.5 mg (2 mg/3 mL) pen injector 0.25 mg SUBCUT Q7D Rx Instructions: ON FRIDAY Discharge Orders: Discharge ED (Routine); Ordered 12/09/23 Ordered By: Ortiz Love Discharge Diet: Usual diet Discharge Activity: Resume usual activity Patient Instructions: Opioid Safety, Pain Management Activity Restrictions/Additional Instructions: Thank you for choosing [facility] for your healthcare needs today. Please realize this is an emergency room and that we are providing you with a medical screening exam and this may not be complete and all inclusive of all the testing and or work up that you may need to determine your ailment or severity of your illness. It is very important that you follow up as instructed or that you return to the Emergency Department should you have concerns or if your condition changes or worsens in any way. You are seen today for an episode of reported shortness of breath this has resolved suspect this may have been related to sleep apnea. Your laboratory studies and ultrasound of your leg were unremarkable. There is no sign of DVT. Will discharge you back to the senior living follow-up with your primary care doctor Coding Level of Care Code ED Registered Art Therapist for [facility]
--- NOTE | 2023-12-09 15:33 | USR_ITS ---
PROCEDURE INFORMATION: Exam: US Duplex Lower Extremity Veins, Bilateral Exam date and time: 12/09/2023 3:58 PM Age: 58 years old Clinical indication: Pain; Leg, lower; Bilateral; Additional info: Pain swelling TECHNIQUE: Imaging protocol: Real-time duplex ultrasound of the bilateral extremities with 2-D nova scale, color Doppler flow and spectral waveform analysis including responses to compression and other maneuvers (when performed) with image documentation. Complete exam focused on the lower extremity veins. COMPARISON: No relevant prior studies available. FINDINGS: Right deep veins: Unremarkable. The common femoral, femoral, proximal profunda femoral and popliteal veins as well as the visualized deep veins of the lower leg are patent without thrombus. Normal Doppler waveforms. Normal compressibility and/or augmentation response. Left deep veins: Unremarkable. The common femoral, femoral, proximal profunda femoral and popliteal veins as well as the visualized deep veins of the lower leg are patent without thrombus. Normal Doppler waveforms. Normal compressibility and/or augmentation response. Superficial veins: Greater saphenous veins at the saphenofemoral junctions are patent bilaterally without thrombus. Soft tissues: Unremarkable. US/CV venous duplex [facility] [address] IMPRESSION: No evidence of deep vein thrombosis.
--- NOTE | 2023-12-09 16:26 | ECG_ITS ---
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 Measurements Intervals [place] Rate: 82 P: 40 MI: 139 QRS: 18 QRSD: 102 T: 44 QT: 395 QTc: 464 Interpretive Statements SINUS RHYTHM NONSPECIFIC T-WAVE ABNORMALITY Compared to ECG 12/09/2023 14:36:07 No significant changes Electronically Signed On 12-10-2023 20:04:57 CDT by Glenroy Aquino M.D. [id number]
[2023-12-09 16:56] VITALS: BP 99/71; PULSE 81; O2SAT 93
[2023-12-09 17:10] LABS: Troponin 5 2HR 8.95 ng/L (0-15)
[2023-12-09 17:11] LABS: Troponin 5 2HR Delta -1.05 ABS# (0-10)
[2023-12-09 18:32] VITALS: BP 114/68; PULSE 81; O2SAT 97
[2023-12-09 19:02] VITALS: BP 114/68; PULSE 81; RESP 21; TEMP 36.5; O2SAT 97
== END 2023-12-09 19:05 | disposition home or self-care (01) ==
PROVIDERS: Emergency Provider Family Medicine
DX: R06.00 Dyspnea, unspecified (principal); Z79.82 Long term (current) use of aspirin; Z79.4 Long term (current) use of insulin; Z79.84 Long term (current) use of oral hypoglycemic drugs; Z79.85 Long-term (current) use of injectable non-insulin antidiabetic drugs
CPT/HCPCS: 36415; 71045; 80053; 84484; 85025; 93005; 93970; 99285

== ENCOUNTER → 2024-04-06 06:00 | Outpatient (CLI) | payer MEDICARE, MEDICAID, SELFPAY | LOC: RAD 04-07 10:26 | PROVIDERS: PCP Family Medicine; Visit Provider Internal Medicine Cardiovascular Disease | DX: R06.02 Shortness of breath (principal); R06.09 Other forms of dyspnea; E78.5 Hyperlipidemia, unspecified; R07.9 Chest pain, unspecified; I10 Essential (primary) hypertension; E11.9 Type 2 diabetes mellitus without complications; Z79.4 Long term (current) use of insulin; G47.33 Obstructive sleep apnea (adult) (pediatric); F31.30 Bipolar disorder, current episode depressed, mild or moderate severity, unspecified; F20.0 Paranoid schizophrenia; E66.01 Morbid (severe) obesity due to excess calories; R09.02 Hypoxemia; Z87.891 Personal history of nicotine dependence; Z68.43 Body mass index [BMI] 50.0-59.9, adult | CPT/HCPCS: 99204 ==

== ENCOUNTER 2024-05-13 08:35 | Outpatient (CLI) | payer MEDICARE, MEDICAID, SELFPAY ==
[2024-05-13 09:56] VITALS: BMI 54.0
--- NOTE | 2024-05-13 11:21 | PC.NURSE ---
Pt unable to complete test. Pt only able to walk for 30 seconds before he said he wasn't able to continue. Nurse attempting to get ahold of dr bailey.
== END 2024-05-13 08:36 | disposition home or self-care (01) ==
LOC: RAD 08:36 → CDL 09:56 → RAD 13:44
PROVIDERS: PCP Family Medicine; Visit Provider Internal Medicine Cardiovascular Disease
DX: Z12.11 Encounter for screening for malignant neoplasm of colon (principal); R07.9 Chest pain, unspecified; I10 Essential (primary) hypertension; E78.5 Hyperlipidemia, unspecified
CPT/HCPCS: 99024; 99204

== ENCOUNTER → 2024-06-11 08:48 | Outpatient (BNVA) | payer MEDICARE, MEDICAID, SELFPAY | PROVIDERS: PCP Family Medicine; Visit Provider Nurse Practitioner Family | DX: I10 Essential (primary) hypertension (principal); R07.89 Other chest pain | CPT/HCPCS: 99214 ==

== ENCOUNTER 2024-08-03 05:54 | Day surgery (SDC) | payer MEDICARE, MEDICAID, SELFPAY ==
[2024-08-03 06:13] VITALS: BP 155/87; PULSE 115; RESP 18; TEMP 36.4; O2SAT 95
[2024-08-03] MEDS: sodium chloride 0.9% 500 ML 15 ML IV (06:22)
[2024-08-03 06:25] LABS: Glucose Point of Care 149 mg/dL (70-110)
--- NOTE | 2024-08-03 06:59 | ANES.PREANE2 ---
Pre-Anesthetic Assessment Height/Weight: Height 1.7 m Weight 152.407 kg Temp Pulse Resp BP Pulse Ox O2 Del Method 97.5 F L 115 H 18 155/87 95 Room Air 08/03/24 06:13 08/03/24 06:13 08/03/24 06:13 08/03/24 06:13 08/03/24 06:13 08/03/24 06:13 Preop Diagnosis: screening Operation Date: 08/03/24 07:00 Proposed Procedures p Colonoscopy 98347, G0105, Z12.11(Not Applicable) - Keshawn Shay MD Familial anesthetic complications: none Was Beta Irvin taken within 24 hours: N/A Was Clonidine taken within 24 hours: N/A Last intake: Intake Last Liquid Date 08/02/24 Last Liquid Time 22:00 Last Solid Date 08/01/24 Last Solid Time 17:30 Social No alcohol and No tobacco (quit 3 years ago) Exam alert and oriented x 3 Airway Submandibular: within normal limits Cervical ROM: within normal limits Mallampati: Class IV Pulmonary Chronic Obstructive Pulmonary Disease, Exertional Dyspnea, Othopnea and Sleep Apnea CV/HEM Hypertension None reported Hepatic None reported GI Gastroesophageal Reflux Disease Metabolic Diabetes Mellitus, Hyperlipidemia, Morbid Obesity and Thyroid Disease Musc/skel Osteoarthritis/DJD and Weakness resting tremor, states he used to take meds for tartive dyskinesia Neuropsych Seizure (takes depakote. last seizure at age 23.) Anesthetic Plan ASA status: 4 Anesthesia: Anesthesia Evaluation, General and MAC Risk of > 500 ml blood loss (7ml/kg in children): No Medications/Allergies Home Medications Medication Instructions Recorded Confirmed Last Taken Type divalproex 500 mg tablet,delayed 1,000 mg PO BID 12/06/20 08/03/24 08/02/24 History release famotidine 20 mg tablet (Pepcid) 20 mg PO BID@08,20 12/06/20 08/03/24 08/02/24 History fluticasone propionate 50 2 spray intranasal QAM 12/06/20 08/03/24 08/02/24 History mcg/actuation nasal spray,suspension latanoprost 0.005 % eye drops 1 drp ophthalmic (eye) DAILY@12/06/20 08/03/24 08/02/24 History meloxicam 7.5 mg tablet 7.5 mg PO DAILY@07 12/06/20 08/03/24 08/02/24 History pantoprazole 40 mg tablet,delayed 40 mg PO DAILY@07 12/06/20 08/03/24 08/02/24 History release (Protonix) tamsulosin 0.4 mg capsule (Flomax) 0.4 mg PO BEDTIME 12/06/20 08/03/24 08/02/24 History cyclosporine 0.05 % eye drops in a 1 drp ophthalmic (eye) Q12H 12/09/20 08/03/24 08/02/24 History dropperette (Restasis) gabapentin 600 mg tablet 600 mg PO TID 12/09/20 08/03/24 08/02/24 History nitroglycerin 0.4 mg sublingual 0.4 mg sublingual Q5M PRN Chest 12/09/20 08/03/24 Unknown History tablet (Nitrostat) Pain tolterodine 1 mg tablet (Detrol) 1 mg PO BID@08,20 12/09/20 08/03/24 08/02/24 History acetaminophen 325 mg tablet 650 mg PO BID 11/17/23 08/03/24 08/02/24 History aluminum-mag hydroxide-simethicone 30 ml PO QID PRN Indigestion 11/17/23 08/03/24 Unknown History 200 mg-200 mg-20 mg/5 mL oral susp (Dawna-Lanta) aspirin 81 mg tablet,delayed 81 mg PO QAM 11/17/23 08/03/24 08/02/24 History release atorvastatin 20 mg tablet 20 mg PO BEDTIME 11/17/23 08/03/24 08/02/24 History cetirizine 10 mg tablet 10 mg PO BEDTIME 11/17/23 08/03/24 08/02/24 History fluoxetine 40 mg capsule 80 mg PO QAM 11/17/23 08/03/24 08/02/24 History glucagon 1 mg solution for 1 mg IM PRN PRN LOW BLOOD SUGAR 11/17/23 08/03/24 Unknown History injection (Glucagon Emergency Kit) insulin aspart 35 unit SUBCUT TID 11/17/23 08/03/24 07/29/24 History (niacinamide)(U-100) 100 unit/mL(3 mL) subcutaneous pen (Fiasp FlexTouch U-100 Insulin) insulin degludec 100 unit/mL (3 95 unit SUBCUT BEDTIME 11/17/23 08/03/24 07/28/24 History mL) subcutaneous pen (Tresiba FlexTouch U-100 insulin) metformin 1,000 mg tablet 1,000 mg PO BID 11/17/23 08/03/24 08/02/24 History naloxone 0.4 mg/mL injection 2 mg SUBCUT Q2M PRN Opioid Overdose 11/17/23 08/03/24 Unknown History solution semaglutide 0.25 mg or 0.5 mg (2 0.25 mg SUBCUT Q7D 11/17/23 08/03/24 07/19/24 History mg/3 mL) subcutaneous pen injector (Ozempic) sennosides 8.6 mg-docusate sodium 2 tab-cap PO QAM 11/17/23 08/03/24 08/02/24 History 50 mg tablet (Senokot-S) levothyroxine 25 mcg tablet 50 mcg PO DAILY@07 04/06/24 08/03/24 08/03/24 History haloperidol 5 mg tablet 5 mg PO BID 05/13/24 08/03/24 08/02/24 History Allergies Allergy/AdvReac Type Severity Reaction Status Date / Time bee venom protein (honey bee) Allergy Unknown Verified 06/11/24 09:36 metformin [From Glucophage] Allergy Unknown Verified 06/11/24 09:36 Penicillins Allergy Unknown Verified 06/11/24 09:36 Current Medications Generic Name Dose Route Start Last Admin Trade Name Freq PRN Reason Stop Dose Admin Sodium Chloride 500 mls @ 15 mls/hr 08/03/24 06:01 08/03/24 06:22 Sodium Chloride 0.9% IV 08/04/24 06:00 15 mls/hr .Q24H PRN Administration COLONOSCOPY FLUIDS PFSH Anesthesia Medical History Adjustment disorder with mixed disturbance of emotions and conduct Schizophrenia Bipolar disorder Family History Mother Crohn's disease Diabetes Hypertension Social History Smoking and tobacco/nicotine status: former use of tobacco/nicotine Data Anesthesia Cardiac Studies: Echocardiogram 05/13/24
--- NOTE | 2024-08-03 07:02 | W.PM.OPSFHP ---
Same Day Surgery H&P Indication for Procedure/HPI DATE OF PROCEDURE: August 03, 2024 CHIEF COMPLAINT/INDICATIONFOR SURGICAL PROCEDURE: screening colonoscopy PREOP DIAGNOSIS: screening colonoscopy PLANNED PROCEDURE: Operation Date: 08/03/24 07:00 Proposed Procedures p Colonoscopy 52706, G0105, Z12.11(Not Applicable) - Keshawn Shay MD Medications/Allergies* Home Medications Medication Instructions Recorded Confirmed Type divalproex 500 mg tablet,delayed 1,000 mg PO BID 12/06/20 08/03/24 History release famotidine 20 mg tablet (Pepcid) 20 mg PO BID@08,12/06/20 08/03/24 History fluticasone propionate 50 2 spray intranasal QAM 12/06/20 08/03/24 History mcg/actuation nasal spray,suspension latanoprost 0.005 % eye drops 1 drp ophthalmic (eye) DAILY@07 12/06/20 08/03/24 History meloxicam 7.5 mg tablet 7.5 mg PO DAILY@12/06/20 08/03/24 History pantoprazole 40 mg tablet,delayed 40 mg PO DAILY@12/06/20 08/03/24 History release (Protonix) tamsulosin 0.4 mg capsule (Flomax) 0.4 mg PO BEDTIME 12/06/20 08/03/24 History cyclosporine 0.05 % eye drops in a 1 drp ophthalmic (eye) Q12H 12/09/20 08/03/24 History dropperette (Restasis) gabapentin 600 mg tablet 600 mg PO TID 12/09/20 08/03/24 History nitroglycerin 0.4 mg sublingual 0.4 mg sublingual Q5M PRN Chest 12/09/20 08/03/24 History tablet (Nitrostat) Pain tolterodine 1 mg tablet (Detrol) 1 mg PO BID@08,12/09/20 08/03/24 History acetaminophen 325 mg tablet 650 mg PO BID 11/17/23 08/03/24 History aluminum-mag hydroxide-simethicone 30 ml PO QID PRN Indigestion 11/17/23 08/03/24 History 200 mg-200 mg-20 mg/5 mL oral susp (Dawna-Lanta) aspirin 81 mg tablet,delayed 81 mg PO QAM 11/17/23 08/03/24 History release atorvastatin 20 mg tablet 20 mg PO BEDTIME 11/17/23 08/03/24 History cetirizine 10 mg tablet 10 mg PO BEDTIME 11/17/23 08/03/24 History fluoxetine 40 mg capsule 80 mg PO QAM 11/17/23 08/03/24 History glucagon 1 mg solution for 1 mg IM PRN PRN LOW BLOOD SUGAR 11/17/23 08/03/24 History injection (Glucagon Emergency Kit) insulin aspart 35 unit SUBCUT TID 11/17/23 08/03/24 History (niacinamide)(U-100) 100 unit/mL(3 mL) subcutaneous pen (Fiasp FlexTouch U-100 Insulin) insulin degludec 100 unit/mL (3 95 unit SUBCUT BEDTIME 11/17/23 08/03/24 History mL) subcutaneous pen (Tresiba FlexTouch U-100 insulin) metformin 1,000 mg tablet 1,000 mg PO BID 11/17/23 08/03/24 History naloxone 0.4 mg/mL injection 2 mg SUBCUT Q2M PRN Opioid Overdose 11/17/23 08/03/24 History solution semaglutide 0.25 mg or 0.5 mg (2 0.25 mg SUBCUT Q7D 11/17/23 08/03/24 History mg/3 mL) subcutaneous pen injector (Ozempic) sennosides 8.6 mg-docusate sodium 2 tab-cap PO QAM 11/17/23 08/03/24 History 50 mg tablet (Senokot-S) levothyroxine 25 mcg tablet 50 mcg PO DAILY@07 04/06/24 08/03/24 History haloperidol 5 mg tablet 5 mg PO BID 05/13/24 08/03/24 History Allergies/Adverse Reactions Allergy/AdvReac Type Severity Reaction Status Date / Time bee venom protein (honey bee) Allergy Unknown Verified 06/11/24 09:36 metformin [From Glucophage] Allergy Unknown Verified 06/11/24 09:36 Penicillins Allergy Unknown Verified 06/11/24 09:36 Current Medications: Generic Name Dose Route Start Last Admin Trade Name Freq PRN Reason Stop Dose Admin Sodium Chloride 500 mls @ 15 mls/hr 08/03/24 06:01 08/03/24 06:22 Sodium Chloride 0.9% IV 08/04/24 06:00 15 mls/hr .Q24H PRN Administration COLONOSCOPY FLUIDS Pertinent History/Comorbid Conditions* Medical History (Updated 04/06/24 @ 17:54 by Glenroy Aquino MD) Adjustment disorder with mixed disturbance of emotions and conduct Schizophrenia Bipolar disorder Family History (Updated 05/13/24 @ 07:57 by MARCO Guillen) Diabetes Mother Crohn's disease Mother Hypertension Mother Social History Smoking and tobacco/nicotine status: former use of tobacco/nicotine Pertinent Exam Findings alert, oriented x 3, clear to auscultation bilaterally, regular rate & rhythm and procedure specific exam findings abdomen soft, nt, nd Recommendations Surgery/Procedure today Coding Level of Care Code Acute Code for Chg Fwd
[2024-08-03 07:35] VITALS: BP 89/58; PULSE 85; RESP 18; TEMP 36.7; O2SAT 97
[2024-08-03 07:47] VITALS: BP 128/75; PULSE 90; RESP 18; O2SAT 93
--- NOTE | 2024-08-03 07:48 | ANE.PACU2 ---
Inpatient post-anesthesia follow up: Airway intact: Yes Vital signs: Temperature 98.1 F Pulse Rate 90 Respiratory Rate 18 Blood Pressure 128/75 Pulse Oximetry 93 Oxygen Delivery Me thod Room Air Oxygen Flow Rate 2 Fraction of Inspir ed Oxygen Hydration adequate: Yes Nausea and vomiting: No Pain level: 1 Mental status: Baseline
== END 2024-08-03 08:01 | disposition home or self-care (01) ==
PROVIDERS: PCP Family Medicine; Visit Provider Student in an Organized Health Care Education/Training Program
PROC: 0DJD8ZZ Inspection of Lower Intestinal Tract, Via Natural or Artificial Opening Endoscopic (ICD-10-PCS; CPT 45378; principal; 2024-08-03 07:00)
DX: Z12.11 Encounter for screening for malignant neoplasm of colon (principal); Z79.82 Long term (current) use of aspirin; Z79.4 Long term (current) use of insulin; Z87.891 Personal history of nicotine dependence; G47.30 Sleep apnea, unspecified; I10 Essential (primary) hypertension; K21.9 Gastro-esophageal reflux disease without esophagitis; E11.9 Type 2 diabetes mellitus without complications; E78.5 Hyperlipidemia, unspecified; E66.01 Morbid (severe) obesity due to excess calories; Z68.43 Body mass index [BMI] 50.0-59.9, adult; F20.9 Schizophrenia, unspecified
CPT/HCPCS: 36416; 82962; 88305; G0121; J2704; J7040

== ENCOUNTER → 2024-08-19 08:13 | Outpatient (BNVA) | payer MEDICARE, MEDICAID, SELFPAY | PROVIDERS: PCP Family Medicine; Visit Provider Student in an Organized Health Care Education/Training Program | DX: Z09 Encounter for follow-up examination after completed treatment for conditions other than malignant neoplasm (principal); R03.0 Elevated blood-pressure reading, without diagnosis of hypertension | CPT/HCPCS: 99213 ==

== ENCOUNTER → 2025-04-06 14:34 | Outpatient (BNVA) | payer MEDICARE, MEDICAID, SELFPAY | PROVIDERS: PCP Family Medicine; Visit Provider Internal Medicine Cardiovascular Disease | DX: R07.89 Other chest pain (principal); I10 Essential (primary) hypertension; E78.5 Hyperlipidemia, unspecified; G47.33 Obstructive sleep apnea (adult) (pediatric); E11.9 Type 2 diabetes mellitus without complications; Z79.4 Long term (current) use of insulin; Z79.84 Long term (current) use of oral hypoglycemic drugs; Z79.85 Long-term (current) use of injectable non-insulin antidiabetic drugs; F31.9 Bipolar disorder, unspecified; F20.9 Schizophrenia, unspecified; E66.01 Morbid (severe) obesity due to excess calories; Z68.43 Body mass index [BMI] 50.0-59.9, adult; Z79.82 Long term (current) use of aspirin; Z87.891 Personal history of nicotine dependence; R06.02 Shortness of breath; R07.9 Chest pain, unspecified | CPT/HCPCS: 93005; 99214 ==

== ENCOUNTER 2025-05-13 06:48 | Outpatient (CLI) | payer MEDICARE, MEDICAID, SELFPAY ==
--- NOTE | 2025-05-13 07:08 | ECG_ITS ---
[facility] Test Date: 2025-05-13 Pat Name: Jasvir Reynolds Department: Room: Gender: Male Piecer Up: : 1965 Requested By: Glenroy Aquino Order Number: [id number] Gomez MD: Casey Titus M.D. Interpretive Statements LEXISCAN SESTAMIBI STRESS TEST Procedure: At the baseline, the blood pressure was 102/76 mmHg with a heart rate of 91 bpm. The electrocardiogram showed sinus rhythm, normal axis with normal ST and T's. The Lexiscan was infused over a period of 20 seconds. A total of 0.4 mg of Lexiscan was infused. The stress phase was continued for a total of 5 minutes. Heart rate was at the end of stress phase was 100 bpm and a blood pressure of 128/77 mmHg. The EKG at the peak infusion revealed normal sinus rhythm with no significant ST-T wave changes. Sestamibi was injected 20 seconds after the Lexiscan infusion. Blood pressure at the end of recovery phase was 110/74 mmHg with a heart rate of 90 bpm. Conclusion: 1. Normal EKG response to Lexiscan infusion 2. No Lexiscan induced chest pain or cardiac arrhythmia. 3. Normal blood pressure and heart rate response. 4. Sestamibi/sestamibi perfusion scan pending; see separate report. Electronically Signed On 05-15-2025 15:16:29 CDT by Casey Titus M.D. [email or web address] [email or web address]
--- NOTE | 2025-05-13 07:09 | NMCV_ITS ---
NM warren perf SPECT r/s* [id number] Jasvir Reynolds Age: 60 Gender: M : 1965 Exam Date: 05/13/2025 08:10 Ordering Phys: Glenroy Aquino MD ([email or web address]) Technologist: MARÍA Muro Exam Location: [facility] Indications: cp STRESS TEST [facility] IMAGE PROTOCOL Rest/Stress 1 Lexiscan Day Radiopharmaceutical Dose (mCi) Administration Site Administered by Rest: Tc-99m 10.5 IV Sofia Lorenzo, BENEFIT DIRECTOR Sestamibi Stress:Tc-99m 33 IV Sofia Lorenzo, BENEFIT DIRECTOR Sestamibi Rest: 13-May-2025 60 Discovery 630 Stress: 13-May-2025 30 Discovery 630 0.4mg Lexiscan. Supine position only as patient was unable to lay prone. SPECT RESULTS Technical Quality: Poor Raw Data Analysis: Soft tissue attenuation Image Corrections: No attenuation or motion correction applied Summed Stress Score: 0 Summed Rest Score: 3 Summed Difference Score: 0 PERFUSION FINDINGS Mediium size area of fixed perfusion defect noted in basal to distal inferior wall suffestive of old myocardial infarction vs artifact. FUNCTIONAL RESULTS (calculated via Gated SPECT) Stress Image LV EF (%): 62 Stress EDV (mL):98 TID: 1.04 Stress ESV (mL):37 FUNCTIONAL FINDINGS: basal to mid inferior wall hypokinesis IMPRESSIONS This study is negative for ischemia with possible old myocardial infarction iin RCA territory. Melissa Mendes MD (Electronically Signed) Final Date: 13 May 2025 13:38 S
[2025-05-13 07:13] VITALS: BMI 54.3
[2025-05-13 08:54] VITALS: BP 110/74; PULSE 96
== END 2025-05-13 06:49 | disposition home or self-care (01) ==
LOC: CDL 06:52
PROVIDERS: PCP Family Medicine; Visit Provider Internal Medicine Cardiovascular Disease
DX: R07.9 Chest pain, unspecified (principal); R06.02 Shortness of breath; R93.1 Abnormal findings on diagnostic imaging of heart and coronary circulation
CPT/HCPCS: 36415; 78452; 93017; 96374; A9500; J2785